=== PATIENT | female | born 1990 | race African-American/Black ===

== ENCOUNTER 2017-04-10 06:25 | Emergency (ER) | payer BC, MEDICAID ==
[2017-04-10] MEDS ORDERED: PROMETHAZINE HCL 25 MG TABLET PO ONE (06:44)
[2017-04-10] MEDS ORDERED: NORMAL SALINE 1000 ML 1,000 ML IV ONE (06:45)
[2017-04-10 07:33] LABS: ABSOLUTE BASOPHILS # (AUTO) 0.1 10^3/uL (0.0-0.2); ABSOLUTE LYMPHOCYTES (AUTO) 1.9 10^3/uL (0.5-4.7); ABSOLUTE MONOCYTES (AUTO) 0.4 10^3/uL (0.1-1.4); ABSOLUTE NEUT (AUTO) 4.3 10^3/uL (1.7-8.2); BASOPHILS % (AUTO) 0.9 % (0-2); EOSINOPHILS % (AUTO) 0.5 % (0-6); HEMOGLOBIN 13.5 g/dL (12.0-15.5); HGB HCT DIFFERENCE -0.5; MEAN CORPUSCULAR HEMOGLOBIN 28.7 pg (27.0-33.4); MEAN CORPUSCULAR VOLUME 87 fl (80-97); MONOCYTES % (AUTO) 6.5 % (3-13); RED BLOOD COUNT 4.72 10^6/uL (3.72-5.28); RED CELL DISTRIBUTION WIDTH 13.8 % (11.5-14.0); SEGMENTED NEUTROPHILS % (AUTO) 64.1 % (42-78); WHITE BLOOD COUNT 6.7 10^3/uL (4.0-10.5)
--- NOTE | 2017-04-10 07:53 | ER Document Report ---
ED General - General Chief Complaint: Nausea/Vomiting Stated Complaint: DIZZINESS AND VOMITING Time Seen by Provider: 04/10/17 06:44 Mode of Arrival: Ambulatory Information source: Patient Notes: 26-year-old female 1 para 0 who is approximately 2-3 weeks presents with complaint of nausea and vomiting throughout the . Patient notes she has been having these episodes for the past week has not been able to hold food down feels dehydrated. Patient denies any vaginal bleeding or discharge, denies any abdominal pain. Patient attempted to take Dramamine which did not improve her symptoms TRAVEL OUTSIDE OF THE [place] IN LAST 30 DAYS: No - HPI Onset: Last week Onset/Duration: Persistent Quality of pain: No pain Severity: Mild Pain Level: Denies Associated symptoms: Nausea, Vomiting Exacerbated by: Denies Relieved by: Denies Similar symptoms previously: Yes Recently seen / treated by doctor: Yes Past Medical History - Social History Smoking Status: Never Smoker Cigarette use (# per day): No Chew tobacco use (# tins/day): No Smoking Education Provided: No Frequency of alcohol use: None Drug Abuse: None Family History: Reviewed & Not Pertinent Patient has suicidal ideation: No Patient has homicidal ideation: No Renal/ Medical History: Denies: Hx Peritoneal Dialysis Surgical Hx: Negative - Immunizations Hx Diphtheria, Pertussis, Tetanus Vaccination: Yes Review of Systems - Review of Systems Notes: PHYSICAL EXAMINATION: GENERAL: Well-appearing, well-nourished and in no acute distress. HEAD: Atraumatic, normocephalic. EYES: Pupils equal round and reactive to light, extraocular movements intact, conjunctiva are normal. ENT: Nares patent, oropharynx clear without exudates. Moist mucous membranes. NECK: Normal range of motion, supple without lymphadenopathy LUNGS: Breath sounds clear to auscultation bilaterally and equal. No wheezes rales or rhonchi. HEART: Regular rate and rhythm without murmurs ABDOMEN: Soft, nontender, nondistended abdomen. No guarding, no rebound. No masses appreciated. Female : deferred Musculoskeletal: Normal range of motion, no pitting or edema. No cyanosis. NEUROLOGICAL: Cranial nerves grossly intact. Normal speech, normal gait. Normal sensory, motor exams PSYCH: Normal mood, normal affect. SKIN: Warm, Dry, normal turgor, no rashes or lesions noted. Physical Exam - Vital signs Vitals: Temp Pulse Resp BP Pulse Ox 97.7 F 90 20 127/69 H 100 04/10/17 06:28 04/10/17 06:28 04/10/17 06:28 04/10/17 06:28 04/10/17 06:28 Course - Re-evaluation Re-evalutation: 04/10/17 07:44 After performing a Medical Screening Examination, I estimate there is LOW risk for ACUTE APPENDICITIS, BOWEL OBSTRUCTION, ACUTE CHOLECYSTITIS, PERFORATED DIVERTICULITIS, INCARCERATED HERNIA, PANCREATITIS, PELVIC INFLAMMATORY DISEASE, PERFORATED ULCER, ECTOPIC , or TUBO-OVARIAN ABSCESS, thus I consider the discharge disposition reasonable. Also, there is no evidence or peritonitis , sepsis, or toxicity. I have reevaluated this patient multiple times and no significant life threatening changes are noted. The patient and I have discussed the diagnosis and risks, and we agree with discharging home with close follow-up with the understanding that symptoms and presentations can change. We also discussed returning to the Emergency Department immediately if new or worsening symptoms occur. We have discussed the symptoms which are most concerning (e.g., bloody stool, fever, changing or worsening pain, vomiting) that necessitate immediate return. 04/10/17 08:45 ketones noted to be signifcantly elevated on UA. , more fluids ordered 04/10/17 09:10 Patient is hydrating well 04/10/17 09:32 Patient still she is feeling much better and wishes to be discharged, will DC home with nausea control and close follow-up After performing a Medical Screening Examination, I estimate there is LOW risk for ACUTE APPENDICITIS, BOWEL OBSTRUCTION, ACUTE CHOLECYSTITIS, PERFORATED DIVERTICULITIS, INCARCERATED HERNIA, PANCREATITIS, PELVIC INFLAMMATORY DISEASE, PERFORATED ULCER, ECTOPIC , or TUBO-OVARIAN ABSCESS, thus I consider the discharge disposition reasonable. Also, there is no evidence or peritonitis , sepsis, or toxicity. I have reevaluated this patient multiple times and no significant life threatening changes are noted. The patient and I have discussed the diagnosis and risks, and we agree with discharging home with close follow-up with the understanding that symptoms and presentations can change. We also discussed returning to the Emergency Department immediately if new or worsening symptoms occur. We have discussed the symptoms which are most concerning (e.g., bloody stool, fever, changing or worsening pain, vomiting) that necessitate immediate return. - Vital Signs Vital signs: Temp Pulse Resp BP Pulse Ox 97.7 F 90 20 127/69 H 100 04/10/17 06:28 04/10/17 06:28 04/10/17 06:28 04/10/17 06:28 04/10/17 06:28 - Laboratory Result Diagrams: 04/10/17 07:09 04/10/17 08:44 Laboratory results interpreted by me: 04/10/17 04/10/17 07:09 08:44 Serum HCG, Qual POSITIVE H Urine Protein 30 H Urine Ketones 300 H Urine Bilirubin SMALL H Urine Urobilinogen 2.0 H Discharge - Discharge Clinical Impression: Ketonuria, Hyperemesis gravidarum Condition: Stable Disposition: HOME, SELF-CARE Instructions: Vomiting ([facility]) Additional Instructions: Follow up with your physician tomorrow for further care or return to the ED IMMEDIATELY if symptoms worsen or new concerns occur. If you cannot afford to follow up with your primary care physician a list of low cost clinics have been provided at the end of your discharge papers as well. Prescriptions: Promethazine HCl [Phenergan 25 mg Tablet] 25 - 50 mg PO Q4HP PRN #30 tablet PRN Reason: Metoclopramide HCl [Reglan 10 mg Tablet] 1 - 2 tab PO Q6 #25 tablet
[2017-04-10 08:32] LABS: APPEARANCE,URINE HAZY; BILIRUBIN,URINE SMALL (NEGATIVE); GLUCOSE, URINE NEGATIVE (NEGATIVE); KETONES,URINE 300 mg/dL (NEGATIVE); LEUKOCYTE ESTERASE,URINE NEGATIVE (NEGATIVE); NITRITE,URINE NEGATIVE (NEGATIVE); PROTEIN,URINE 30 mg/dL (NEGATIVE); URIC ACID CRYSTALS,URINE MODERATE /HPF
[2017-04-10 08:42] LABS: URINE SPECIFIC GRAVITY 1.033
[2017-04-10] MEDS ORDERED: NORMAL SALINE 1000 ML 1,000 ML IV PRN (08:45)
[2017-04-10 09:15] LABS: ALANINE AMINOTRANSFERASE 28 U/L (9-52); ALBUMIN 4.2 g/dL (3.5-5.0); ALKALINE PHOSPHATASE 61 U/L (38-126); ANION GAP 11 (5-19); ASPARTATE AMINO TRANSFERASE 18 U/L (14-36); BILIRUBIN,DIRECT 0.4 mg/dL (0.0-0.4); BILIRUBIN,TOTAL 0.7 mg/dL (0.2-1.3); BLOOD UREA NITROGEN 11 mg/dL (7-20); CALCIUM 9.4 mg/dL (8.4-10.2); CARBON DIOXIDE 22 mmol/L (22-30); CHLORIDE 106 mmol/L (98-107); GLUCOSE 80 mg/dL (75-110); LIPASE 71.2 U/L (23-300); POTASSIUM 4.1 mmol/L (3.6-5.0); SODIUM 139.3 mmol/L (137-145); TOTAL PROTEIN 7.7 g/dL (6.3-8.2)
[2017-04-10 10:33] VITALS: BP 106/66
== END 2017-04-10 10:31 | disposition home or self-care (01) ==
LOC: ER 06:25
DX: O21.0 Mild hyperemesis gravidarum (principal); O26.899 Other specified pregnancy related conditions, unspecified trimester; R82.4 Acetonuria; Z3A.00 Weeks of gestation of pregnancy not specified
CPT/HCPCS: 99283; 36415; 83690; 84703; 85025; 80053; 81001; J7030

== ENCOUNTER 2017-10-17 12:23 | Emergency (ER) | payer BC, MEDICAID ==
[2017-10-17] MEDS ORDERED: NORMAL SALINE 1000 ML 1,000 ML IV ONE ×2 (13:03→14:12)
[2017-10-17] MEDS ORDERED: METOCLOPRAMIDE HCL INJ/PF 10 MG/2 ML SDV IV ONE (13:03)
--- NOTE | 2017-10-17 13:04 | ER Document Report ---
ED Medical Screen (RME) - General Chief Complaint: Nausea/Vomiting Stated Complaint: NAUSEA,VOMITING,WEAKNESS Time Seen by Provider: 10/17/17 13:02 Notes: pt with nv for one week. some lbp. no vag bleed/dc. 33wks preg TRAVEL OUTSIDE OF THE [place] IN LAST 30 DAYS: No - Related Data Allergies/Adverse Reactions: No Known Allergies Allergy (Unverified 10/17/17 12:36) Past Medical History Renal/ Medical History: Denies: Hx Peritoneal Dialysis - Immunizations Hx Diphtheria, Pertussis, Tetanus Vaccination: Yes Physical Exam - Vital signs Vitals: Temp Pulse Resp BP Pulse Ox 98.4 F 83 16 121/73 100 10/17/17 12:27 10/17/17 12:27 10/17/17 12:27 10/17/17 12:27 10/17/17 12:27 Course - Vital Signs Vital signs: Temp Pulse Resp BP Pulse Ox 98.4 F 83 16 121/73 100 10/17/17 12:27 10/17/17 12:27 10/17/17 12:27 10/17/17 12:27 10/17/17 12:27
[2017-10-17 13:58] LABS: ABSOLUTE LYMPHOCYTES (AUTO) 1.3 10^3/uL (0.5-4.7); ABSOLUTE MONOCYTES (AUTO) 0.4 10^3/uL (0.1-1.4); ABSOLUTE NEUT (AUTO) 4.2 10^3/uL (1.7-8.2); BASOPHILS % (AUTO) 0.3 % (0-2); EOSINOPHILS % (AUTO) 0.5 % (0-6); HEMATOCRIT 36.2 % (36.0-47.0); HGB HCT DIFFERENCE -0.2; LYMPHOCYTES % (AUTO) 21.3 % (13-45); MEAN CORPUSCULAR HEMOGLOBIN 29.5 pg (27.0-33.4); MEAN CORPUSCULAR HGB CONC 33.1 g/dL (32.0-36.0); MEAN CORPUSCULAR VOLUME 89 fl (80-97); MONOCYTES % (AUTO) 7.5 % (3-13); RED BLOOD COUNT 4.07 10^6/uL (3.72-5.28); RED CELL DISTRIBUTION WIDTH 13.9 % (11.5-14.0); SEGMENTED NEUTROPHILS % (AUTO) 70.4 % (42-78); WHITE BLOOD COUNT 5.9 10^3/uL (4.0-10.5)
[2017-10-17 14:12] LABS: ALANINE AMINOTRANSFERASE 26 U/L (9-52); ALBUMIN 4.1 g/dL (3.5-5.0); ALKALINE PHOSPHATASE 132 U/L (38-126); ANION GAP 12 (5-19); ASPARTATE AMINO TRANSFERASE 19 U/L (14-36); BILIRUBIN,DIRECT 0.3 mg/dL (0.0-0.4); BILIRUBIN,TOTAL 0.7 mg/dL (0.2-1.3); BLOOD UREA NITROGEN 9 mg/dL (7-20); CALCIUM 9.4 mg/dL (8.4-10.2); CARBON DIOXIDE 24 mmol/L (22-30); CHLORIDE 104 mmol/L (98-107); CREATININE RESULT 0.75 mg/dL (0.52-1.25); GLUCOSE 60 mg/dL (75-110); POTASSIUM 4.1 mmol/L (3.6-5.0); SODIUM 139.6 mmol/L (137-145); TOTAL PROTEIN 7.2 g/dL (6.3-8.2)
[2017-10-17] MEDS ORDERED: DEXTROSE 5%-LACTATED RINGERS 1,000 ML IV ONE ×3 (14:13→16:10)
--- NOTE | 2017-10-17 14:17 | ER Document Report ---
ED GI/ - General Mode of Arrival: Ambulatory Information source: Patient TRAVEL OUTSIDE OF THE [place] IN LAST 30 DAYS: No - HPI Patient complains to provider of: Vomiting Onset: Last week Context: - 33 weeks Associated symptoms: Other - see notes above <SHAWN CARRASCO - Last Filed: 10/17/17 14:32> <JANN TRIVEDI - Last Filed: 10/17/17 17:06> - General Chief Complaint: Nausea/Vomiting Stated Complaint: NAUSEA,VOMITING,WEAKNESS Time Seen by Provider: 10/17/17 13:02 Notes: 26 year old female (33 weeks) presents to the ED complaining of nausea and vomiting that started last week. Patient reports that her vomiting is similar to when she was having morning sickness during . Patient has been prescribed Zofran with instructions to take as needed. Patient explains that she takes it approximately every other day, but claims that the medication has not been helping. Prior to seeing the patient, the patient was given 1L saline and IV Reglan and reports feeling better than before. (SHAWN CARRASCO) - Related Data Allergies/Adverse Reactions: No Known Allergies Allergy (Unverified 10/17/17 12:36) Past Medical History - General Information source: Patient - Social History Smoking Status: Never Smoker Chew tobacco use (# tins/day): No Frequency of alcohol use: None Drug Abuse: None Family History: Reviewed & Not Pertinent Patient has suicidal ideation: No Patient has homicidal ideation: No Renal/ Medical History: Denies: Hx Peritoneal Dialysis - Immunizations Hx Diphtheria, Pertussis, Tetanus Vaccination: Yes <SHAWN CARRASCO - Last Filed: 10/17/17 14:32> Review of Systems - Review of Systems Constitutional: No symptoms reported EENT: No symptoms reported Cardiovascular: No symptoms reported Respiratory: No symptoms reported Gastrointestinal: See HPI, Nausea, Vomiting Genitourinary: No symptoms reported Female Genitourinary: See HPI, - 33 weeks Musculoskeletal: No symptoms reported Skin: No symptoms reported Hematologic/Lymphatic: No symptoms reported Neurological/Psychological: No symptoms reported -: Yes All other systems reviewed and negative <SHAWN CARRASCO - Last Filed: 10/17/17 14:32> Physical Exam - General General appearance: Appears well, Alert In distress: None - HEENT Head: Normocephalic, Atraumatic Eyes: Normal Extraocular movements intact: Yes Pupils: PERRL - Respiratory Respiratory status: No respiratory distress Breath sounds: Normal - Cardiovascular Rhythm: Regular Heart sounds: Normal auscultation - Abdominal Inspection: Gravid female Bowel sounds: Normal Tenderness: Tender - diffuse - Back Back: Normal - Extremities General upper extremity: Normal inspection, Normal ROM General lower extremity: Normal inspection, Normal ROM - Neurological Neuro grossly intact: Yes - Psychological Associated symptoms: Normal affect, Normal mood - Skin Skin Temperature: Warm Skin Moisture: Dry Skin Color: Normal <SHAWN CARRASCO - Last Filed: 10/17/17 14:32> - Vital signs Vitals: Temp Pulse Resp BP Pulse Ox 98.4 F 83 16 121/73 100 10/17/17 12:27 10/17/17 12:27 10/17/17 12:27 10/17/17 12:27 10/17/17 12:27 Course - Laboratory Result Diagrams: 10/17/17 13:20 10/17/17 13:20 <SHAWN CARRASCO - Last Filed: 10/17/17 14:32> - Laboratory Result Diagrams: 10/17/17 13:20 10/17/17 13:20 <JANN TRIVEDI - Last Filed: 10/17/17 17:06> - Vital Signs Vital signs: Temp Pulse Resp BP Pulse Ox 98.4 F 83 16 121/73 100 10/17/17 12:27 10/17/17 12:27 10/17/17 12:27 10/17/17 12:27 10/17/17 12:27 - Laboratory Laboratory results interpreted by me: 10/17/17 10/17/17 13:20 16:05 Glucose 60 L Alkaline Phosphatase 132 H Urine Protein 30 H Urine Glucose (UA) >=500 H Urine Ketones 80 H Urine Urobilinogen 2.0 H Urine Ascorbic Acid 40 H Discharge <SHAWN CARRASCO - Last Filed: 10/17/17 14:32> <JANN TRIVEDI - Last Filed: 10/17/17 17:06> - Discharge Clinical Impression: Hyperemesis gravidarum, Hypoglycemia, 33 weeks gestation of Condition: Stable Disposition: HOME, SELF-CARE Additional Instructions: Hyperemesis Gravidarum Hyperemesis gravidarum is the medical term for severe vomiting during . We don't know exactly why it occurs, but it's a common problem. Dehydration can occur. This reduces blood flow to the placenta, decreasing the baby's nourishment. The baby will also become dehydrated. There can be harmful changes in blood sodium, potassium, or acid balance. Our goal is to correct, and prevent, dehydration. For severe cases, we give IV fluids. Antinausea medication will be prescribed. (Don't be concerned about " defects" -- the risk to you and your baby from the hyperemesis is the biggest problem. The antinausea medication is very safe at this stage of .) Call the doctor if you have vaginal bleeding, abdominal pain, severe lightheadedness or weakness, or other alarming symptoms. //////////////////////////////////////////////////////////////////////////////// //////////////////////////////////////////////////////// Take medication as prescribed for nausea. Drink cool clear liquids. Follow-up with your [employer] doctor this week if not feeling better. RETURN TO THE EMERGENCY ROOM IF ANY NEW OR WORSENING SYMPTOMS. Prescriptions: Metoclopramide HCl [Reglan 10 mg Tablet] 1 - 2 tab PO ASDIR PRN #30 tablet PRN Reason: Forms: Return to Work Scribe Attestation: 10/17/17 17:05 I personally performed the services described in the documentation, reviewed and edited the documentation which was dictated to the scribe in my presence, and it accurately records my words and actions. (JANN TRIVEDI) Scribe Documentation - Scribe Written by Scribe:: Deneen Newman, 10/17/2017 1421 acting as scribe for :: Simón <SHAWN CARRASCO - Last Filed: 10/17/17 14:32>
[2017-10-17 16:53] LABS: APPEARANCE,URINE SLIGHTLY-CLOUDY; BILIRUBIN,URINE NEGATIVE (NEGATIVE); GLUCOSE, URINE >=500 mg/dL (NEGATIVE); KETONES,URINE 80 mg/dL (NEGATIVE); LEUKOCYTE ESTERASE,URINE NEGATIVE (NEGATIVE); NITRITE,URINE NEGATIVE (NEGATIVE); PROTEIN,URINE 30 mg/dL (NEGATIVE); URINE SPECIFIC GRAVITY 1.032
[2017-10-17 18:33] VITALS: BP 113/72
== END 2017-10-17 18:34 | disposition home or self-care (01) ==
LOC: ER 12:23
DX: O21.0 Mild hyperemesis gravidarum (principal); O99.283 Endocrine, nutritional and metabolic diseases complicating pregnancy, third trimester; E16.2 Hypoglycemia, unspecified; Z3A.33 33 weeks gestation of pregnancy
CPT/HCPCS: 99284; 96361; 96374; 36415; 85025; 80053; 81001; J2765; J7030

== ENCOUNTER 2017-11-20 20:49 | Outpatient (CLI) | payer BC, MEDICAID ==
[2017-11-20 21:49] LABS: ABSOLUTE BASOPHILS # (AUTO) 0.1 10^3/uL (0.0-0.2); ABSOLUTE EOSINOPHILS # (AUTO) 0.1 10^3/uL (0.0-0.6); ABSOLUTE LYMPHOCYTES (AUTO) 2.1 10^3/uL (0.5-4.7); ABSOLUTE MONOCYTES (AUTO) 0.8 10^3/uL (0.1-1.4); ABSOLUTE NEUT (AUTO) 4.6 10^3/uL (1.7-8.2); BASOPHILS % (AUTO) 1.1 % (0-2); EOSINOPHILS % (AUTO) 1.4 % (0-6); HEMATOCRIT 32.6 % (36.0-47.0); HEMOGLOBIN 10.6 g/dL (12.0-15.5); LYMPHOCYTES % (AUTO) 27.6 % (13-45); MEAN CORPUSCULAR HEMOGLOBIN 28.5 pg (27.0-33.4); MEAN CORPUSCULAR HGB CONC 32.6 g/dL (32.0-36.0); MEAN CORPUSCULAR VOLUME 88 fl (80-97); MONOCYTES % (AUTO) 10.1 % (3-13); PLATELET COUNT 309 10^3/uL (150-450); RED BLOOD COUNT 3.72 10^6/uL (3.72-5.28); SEGMENTED NEUTROPHILS % (AUTO) 59.8 % (42-78); TOTAL CELLS COUNTED % (AUTO) 100 %; WHITE BLOOD COUNT 7.6 10^3/uL (4.0-10.5)
--- NOTE | 2017-11-20 22:08 | Non Stress Test Report ---
Non Stress Test Datetime Report Generated by CPN: 11/20/2017 22:07 DEMOGRAPHIC Test Number: 1 EGA NST: 38.5 INDICATION Indication for Study: Ordered by Provider VITAL SIGNS Temperature - NST: 98.5 MONITORING Monitor Explained: Monitor Explained; Test Explained; Patient Verbalized Understanding Time on Monitor: 11/20/2017 21:03 Time off Monitor: 11/20/2017 21:37 NST Duration: 34 NST INTERVENTIONS NST Interventions: PO Hydration Physician Notified NST: Dr. Hickey BABY A: [id number] BABY A Movement : Present Contraction Frequency : no contractions FHR Baseline : 140 Accelerations : 15X15 Decelerations : None Variability : Moderate 6-25bpm NST Review: Meets Criteria for Reactive NST NST Review and Verified By : Lauren Tubbs RN NST Results: Reactive NST REPORT Report Trigger: Send Report
[2017-11-20 22:17] LABS: ALANINE AMINOTRANSFERASE 19 U/L (9-52); ALBUMIN 3.3 g/dL (3.5-5.0); ALKALINE PHOSPHATASE 183 U/L (38-126); ANION GAP 6 (5-19); ASPARTATE AMINO TRANSFERASE 18 U/L (14-36); BILIRUBIN,DIRECT 0.2 mg/dL (0.0-0.4); BILIRUBIN,TOTAL 0.3 mg/dL (0.2-1.3); BLOOD UREA NITROGEN 6 mg/dL (7-20); CALCIUM 9.3 mg/dL (8.4-10.2); CARBON DIOXIDE 27 mmol/L (22-30); CHLORIDE 105 mmol/L (98-107); GLUCOSE 75 mg/dL (75-110); POTASSIUM 4.4 mmol/L (3.6-5.0); SODIUM 137.8 mmol/L (137-145); TOTAL PROTEIN 6.2 g/dL (6.3-8.2)
[2017-11-20 23:00] LABS: RUBELLA INTERPRETATION POSITIVE
[2017-11-22 04:37] LABS: HEPATITIS C VIRUS AB <0.1 s/co ratio (0.0-0.9)
[2017-11-22 07:39] LABS: HEPATITS B SURFACE ANTIGEN Negative (Negative)
== END 2017-11-20 21:45 | disposition home or self-care (01) ==
LOC: LC 20:49
PROVIDERS: ATTEND Obstetrics & Gynecology Gynecology
PROC: 4A1HXCZ Monitoring of Products of Conception, Cardiac Rate, External Approach (ICD-10-PCS; principal; 2017-11-20)
DX: O47.1 False labor at or after 37 completed weeks of gestation (principal); R10.2 Pelvic and perineal pain; Z3A.38 38 weeks gestation of pregnancy
CPT/HCPCS: 36415; 80053; 85025; 86592; 86701; 86762; 86803; 86804; 86850; 86900; 86901; 87340

== ENCOUNTER 2017-11-20 21:56 | Emergency (ER) | payer BC, MEDICAID ==
--- NOTE | 2017-11-20 22:32 | ER Document Report ---
ED General - General Chief Complaint: Abdominal Pain Stated Complaint: LEFT LOW ABDOMINAL PAIN Time Seen by Provider: 11/20/17 22:18 Notes: Patient is a 26-year-old female is 36 weeks who presents with complaint of left-sided pain that was severe. She has history of left ovarian cyst and she was worried that it was complication with this. She denies any fevers. No vomiting or diarrhea. No abnormal vaginal bleeding or discharge. Pain is now gone. She did go to labor and delivery first and they ruled out labor as a cause of her pain. No other complaints at this time. TRAVEL OUTSIDE OF THE [place] IN LAST 30 DAYS: No - Related Data Allergies/Adverse Reactions: No Known Allergies Allergy (Verified 11/20/17 22:19) Past Medical History - Social History Smoking Status: Unknown if Ever Smoked Frequency of alcohol use: None Drug Abuse: None Family History: Reviewed & Not Pertinent Patient has suicidal ideation: No Patient has homicidal ideation: No Renal/ Medical History: Denies: Hx Peritoneal Dialysis - Immunizations Hx Diphtheria, Pertussis, Tetanus Vaccination: Yes Review of Systems - Review of Systems Notes: My Normal Review Basic REVIEW OF SYSTEMS: CONSTITUTIONAL : Denies fever, chills, or sweats. Denies recent illness. RESPIRATORY: Denies cough, cold, or chest congestion. Denies shortness of breath, difficulty breathing, or wheezing. GASTROINTESTINAL: Denies abdominal pain. Denies nausea, vomiting, or diarrhea. Denies constipation. Last BM: GENITOURINARY: Denies difficulty urinating, painful urination, burning, frequency, or blood in urine. FEMALE GENITOURINARY: Currently . No abnormal vaginal discharge or bleeding. History of left ovarian cyst. Left sided pain is now resolved. MUSCULOSKELETAL: Denies neck or back pain or joint pain or swelling. SKIN: Denies rash or skin lesions. NEUROLOGICAL: Denies altered mental status or loss of consciousness. Denies headache. Denies weakness or paralysis or loss of use of either side. Denies problems with gait or speech. Denies sensory or motor loss. ALL OTHER SYSTEMS REVIEWED AND NEGATIVE. Physical Exam - Vital signs Vitals: Temp Pulse Resp BP Pulse Ox 99 F 73 18 111/70 99 11/20/17 22:00 11/20/17 22:00 11/20/17 22:00 11/20/17 22:00 11/20/17 22:00 - Notes Notes: General Appearance: Well nourished, alert, cooperative, no acute distress, no obvious discomfort. Vitals: reviewed, See vital signs table. Eyes: PERRL, EOMI, Conjuctiva clear Abdomen: Normal BS, soft, No rigidity, No reproducible abdominal tenderness to palpation, No guarding, no rebound, Gravid abdomen Extremities: strength 5/5 in all extremities, good pulses in all extremities, no swelling or tenderness in the extremities, no edema. Skin: warm, dry, appropriate color, no rash Neuro: speech clear, oriented x 3, normal affect, responds appropriately to questions. Course - Re-evaluation Re-evalutation: 11/20/17 23:55 Patient will be discharged home. Patient looks well. Her pain has resolved. Ultrasound was negative for torsion. I informed her that she did the right thing to concern for possibility torsion. Informed her she should return to ER immediately if she has recurrence of her pain or feels unwell. Patient agrees with plan. She does have a plan with her telegraph messenger have the cyst removed after delivery of her child. Dictation of this chart was performed using voice recognition software; therefore, there may be some unintended grammatical errors. - Vital Signs Vital signs: Temp Pulse Resp BP Pulse Ox 99 F 73 18 111/70 99 11/20/17 22:00 11/20/17 22:00 11/20/17 22:00 11/20/17 22:00 11/20/17 22:00 - Laboratory Laboratory results interpreted by me: 11/20/17 22:16 Urine Protein 30 H Urine Urobilinogen 2.0 H Ur Leukocyte Esterase SMALL H Discharge - Discharge Clinical Impression: Ovarian cyst Qualifiers: Laterality: left Qualified Code(s): N83.202 - Unspecified ovarian cyst, left side Condition: Good Disposition: HOME, SELF-CARE Additional Instructions: PLease follow up with your OB doctor this week for reevaluation. Please return to [facility] ER imemdiately if you develop worsening recurrent pain, fevers, vomiting , vaginal bleeding, or feel unwell. Referrals: EDI OSORIO MD [Primary Care Provider] - Follow up in 3-5 days
[2017-11-20 22:59] LABS: AMORPHOUS SEDIMENT,URINE TRACE /HPF; APPEARANCE,URINE SLIGHTLY-CLOUDY; BILIRUBIN,URINE NEGATIVE (NEGATIVE); COLOR,URINE YELLOW; GLUCOSE, URINE NEGATIVE (NEGATIVE); KETONES,URINE NEGATIVE (NEGATIVE); LEUKOCYTE ESTERASE,URINE SMALL (NEGATIVE); NITRITE,URINE NEGATIVE (NEGATIVE); PROTEIN,URINE 30 mg/dL (NEGATIVE); URINE SPECIFIC GRAVITY 1.026
--- NOTE | 2017-11-20 23:50 | RADIOLOGY REPORT (SQ) ---
EXAM DESCRIPTION: U/S NON OB PEL LTD W/DOPPLER CLINICAL HISTORY: 26 years, Female, evaluate left ovary for blood flow COMPARISON: None. TECHNIQUE: Targeted for left ovarian lesion only. Gravid uterus. LIMITATIONS: As above. FINDINGS: 9.8 x 8.1 x 6.1 cm left ovary contains a 7.5 x 7.4 x 5.9 cm complex mass with cystic and possible solid components; little or no significant vascularity of the mass is demonstrated. Vascularity is present in the left ovary based on Doppler sonogram. No significant free fluid. IMPRESSION: Indeterminate 7.5 cm left ovarian mass. Limited exam. Gravid uterus not imaged. 2011 [employer]- All Rights Reserved
[2017-11-21 00:05] VITALS: BP 132/73
== END 2017-11-21 00:05 | disposition home or self-care (01) ==
LOC: ER 21:56
DX: O34.83 Maternal care for other abnormalities of pelvic organs, third trimester (principal); N83.202 Unspecified ovarian cyst, left side; Z3A.36 36 weeks gestation of pregnancy
CPT/HCPCS: 76857; 81001; 93976; 99284

== ENCOUNTER 2018-12-06 11:09 | Emergency (ER) | payer BC, MEDICAID ==
[2018-12-06] MEDS ORDERED: ACETAMINOPHEN 325 MG TABLET PO ONE (11:11)
[2018-12-06 11:26] VITALS: BP 117/57
--- NOTE | 2018-12-06 12:11 | ER Document Report ---
HPI - HPI Time Seen by Provider: 12/06/18 11:32 Onset: Yesterday Onset/Duration: Sudden Quality of pain: Achy Pain Level: 4 Context: Patient states she fell yesterday landing on her thumb on pavement. Patient complains of left thumb tenderness with an abrasion. Patient is right-hand dominant. Associated Symptoms: Other - Left thumb injury. denies: Fever Exacerbated by: Movement Relieved by: Denies Similar symptoms previously: No Recently seen / treated by doctor: No - ROS ROS below otherwise negative: Yes Systems Reviewed and Negative: Yes All other systems reviewed and negative - CONSTITUTIONAL Constitutional: DENIES: Fever, Chills - GASTROINTESTINAL Gastrointestinal: DENIES: Nausea - REPRODUCTIVE Reproductive: DENIES: : - MUSCULOSKELETAL Musculoskeletal: REPORTS: Extremity pain - left thumb, Swelling - DERM Skin Color: Normal Skin Problems: Abrasion Past Medical History - General Information source: Patient - Social History Smoking Status: Never Smoker Frequency of alcohol use: None Drug Abuse: None Occupation: Hotel Family History: Reviewed & Not Pertinent Patient has suicidal ideation: No Patient has homicidal ideation: No - Medical History Medical History: Negative Renal/ Medical History: Denies: Hx Peritoneal Dialysis Surgical Hx: Negative - Immunizations Immunizations up to date: Yes Hx Diphtheria, Pertussis, Tetanus Vaccination: Yes Vertical Provider Document - CONSTITUTIONAL Agree With Documented VS: Yes Exam Limitations: No Limitations General Appearance: WD/WN, No Apparent Distress - INFECTION CONTROL TRAVEL OUTSIDE OF THE [place] IN LAST 30 DAYS: No - HEENT HEENT: Atraumatic, Normocephalic - NECK Neck: Normal Inspection - RESPIRATORY Respiratory: No Respiratory Distress - CARDIOVASCULAR Pulses: Normal: Radial - MUSCULOSKELETAL/EXTREMETIES Musculoskeletal/Extremeties: MAEW, Tender - Tenderness to left thumb at that CMC joint, 1+ edema, no deformity, no obvious tendon deficit, Edema. negative: Eccymosis Notes: Abrasion overlying the DIP joint of the left thumb - NEURO Level of Consciousness: Awake, Alert, Appropriate Motor/Sensory: No Motor Deficit - DERM Integumentary: Warm, Dry Notes: Abrasion to dorsal aspect of left thumb Course - Re-evaluation Re-evalutation: 12/06/18 12:37 Abrasion debrided, patient tolerated well - Vital Signs Vital signs: Temp Pulse Resp BP Pulse Ox 98.6 F 59 L 14 117/57 L 100 12/06/18 11:25 12/06/18 11:25 12/06/18 11:25 12/06/18 11:25 12/06/18 11:25 - Diagnostic Test Radiology reviewed: Image reviewed, Reports reviewed Procedures - Immobilization Left Thumb Pre-Proc Neuro Vasc Exam: Normal Immobilizer type: Thumb spica Performed by: PCT Post-Proc Neuro Vasc Exam: Normal Alignment checked and good: Yes Discharge - Discharge Clinical Impression: Left thumb sprain Qualifiers: Encounter type: initial encounter Sprain of finger site: unspecified site Qualified Code(s): S63.602A - Unspecified sprain of left thumb, initial encounter Abrasion of left thumb Qualifiers: Encounter type: initial encounter Qualified Code(s): S60.312A - Abrasion of left thumb, initial encounter Condition: Stable Disposition: HOME, SELF-CARE Instructions: Abrasions ([facility]), Ice & Elevation ([facility]), Sprained Thumb ([facility]), Temporary Splint ([facility]) Additional Instructions: Return immediately for any new or worsening symptoms Followup with your primary care provider, call tomorrow to make a followup appointment Wear splint for the next 4-5 days and then remove. If still having pain follow- up with orthopedics Prescriptions: Naproxen [Naprosyn 250 Nmg Tablet] 1 tab PO BID #14 tablet Forms: Return to Work Referrals: DEI OSORIO MD [ACTIVE STAFF] - Follow up as needed CAROLINA JONES DO [ACTIVE STAFF] - Follow up as needed
--- NOTE | 2018-12-06 12:21 | RADIOLOGY REPORT (SQ) ---
EXAM DESCRIPTION: FINGER LEFT COMPLETED DATE/TIME: 12/06/2018 11:53 am REASON FOR STUDY: fall, L thumb injury COMPARISON: None. NUMBER OF VIEWS: Three views. TECHNIQUE: AP, lateral, and oblique images acquired of the left thumb. LIMITATIONS: None. FINDINGS: MINERALIZATION: Normal. BONES: No acute fracture or dislocation. No worrisome bone lesions. SOFT TISSUES: No soft tissue swelling. No foreign body. OTHER: No other significant finding. IMPRESSION: NO RADIOGRAPHIC EVIDENCE OF ACUTE INJURY. TECHNICAL DOCUMENTATION: JOB ID: [id number] [employer]- All Rights Reserved Reading location - IP/workstation name: [email or web address]
== END 2018-12-06 12:45 | disposition home or self-care (01) ==
LOC: ER 11:09
DX: S63.602A Unspecified sprain of left thumb, initial encounter (principal); S60.312A Abrasion of left thumb, initial encounter; W01.0XXA Fall on same level from slipping, tripping and stumbling without subsequent striking against object, initial encounter
CPT/HCPCS: 99283

== ENCOUNTER 2019-07-31 14:50 | Emergency (ER) | payer SELFPAY ==
[2019-07-31 14:56] VITALS: BP 123/63
--- NOTE | 2019-07-31 15:23 | ER Document Report ---
HPI - HPI Patient complains to provider of: abdominal pain Time Seen by Provider: 07/31/19 15:04 Onset: This morning Onset/Duration: Sudden Quality of pain: No pain Pain Level: Denies Context: This 28-year-old female presents emergency department with complaints of abdominal pain. She reports her 1-year-old daughter kicked her in the left lower quadrant this morning and she had pain for about 2 hours this morning. She reports pain went away and then it came back around noon. Patient reports history of left ovarian cyst and is worried that it was ruptured. Denies vaginal bleeding. Denies other symptoms such as fever vomiting diarrhea. Denies pain with void. Denies vaginal discharge. Patient denies pain at this time. Associated Symptoms: None Exacerbated by: Denies Relieved by: Denies Similar symptoms previously: No Recently seen / treated by doctor: No - REPRODUCTIVE Reproductive: DENIES: : Past Medical History - General Information source: Patient Last Menstrual Period: July 05 - Social History Smoking Status: Never Smoker Chew tobacco use (# tins/day): No Frequency of alcohol use: None Drug Abuse: None Lives with: Family Family History: Reviewed & Not Pertinent Patient has suicidal ideation: No Patient has homicidal ideation: No Renal/ Medical History: Reports: Hx Ovarian Cysts. Denies: Hx Peritoneal Dialysis Surgical Hx: Negative - Immunizations Immunizations up to date: Yes Hx Diphtheria, Pertussis, Tetanus Vaccination: Yes Vertical Provider Document - CONSTITUTIONAL Agree With Documented VS: Yes Exam Limitations: No Limitations General Appearance: WD/WN, No Apparent Distress - INFECTION CONTROL TRAVEL OUTSIDE OF THE [place] IN LAST 30 DAYS: No - HEENT HEENT: Atraumatic, Normocephalic - NECK Neck: Normal Inspection, Supple. negative: Lymphadenopathy-Left, Lymphadenopathy-Right - RESPIRATORY Respiratory: Breath Sounds Normal, No Respiratory Distress - CARDIOVASCULAR Cardiovascular: Regular Rate, Regular Rhythm - GI/ABDOMEN Gastrointestinal: Abdomen Soft, Abdomen Non-Tender - MUSCULOSKELETAL/EXTREMETIES Musculoskeletal/Extremeties: CLAUDE PARKER - NEURO Level of Consciousness: Awake, Alert, Appropriate - DERM Integumentary: Warm, Dry Course - Re-evaluation Re-evalutation: 07/31/19 15:22 28-year-old female presents emergency department with complaints of left lower quad abdominal pain after her 1-year-old daughter kicked her this morning. Denies pain with void. Denies vaginal bleeding. Patient will be evaluated with transvaginal ultrasound in urine. She verbalized understanding to plan of care. Declined pain medication. 07/31/19 19:24 Patient was contacted and informed of her hCG. She was instructed to follow-up with MANAGER DOCUMENTATION tomorrow she verbalized understanding promised she would follow-up. She will Transvaginal US 07/31/19 15:08 IMPRESSION: 1. Complex solid and cystic mass in the left adnexa that is unchanged from 11/20/2017 and is consistent with a mature cystic ovarian teratoma. 2. Hyperechoic lesion in the right ovary that measures 8 x 9 x 7 mm could represent another teratoma. 3. No evidence of ovarian torsion. 4. Fluid within the endometrial canal. - Vital Signs Vital signs: Temp Pulse Resp BP Pulse Ox 98.6 F 70 18 123/63 98 07/31/19 14:55 07/31/19 14:55 07/31/19 14:55 07/31/19 14:55 07/31/19 14:55 - Diagnostic Test Radiology reviewed: Image reviewed, Reports reviewed Discharge - Discharge Clinical Impression: Abdominal pain Qualifiers: Abdominal location: left lower quadrant Qualified Code(s): R10.32 - Left lower quadrant pain Condition: Stable Disposition: HOME, SELF-CARE Instructions: Abdominal Pain ([facility]), [employer] [facility], [facility] [place], ([facility]) Additional Instructions: *You have been evaluated for abdominal pain *The ultrasound did not show a ovarian cystic mass that is unchanged from your ultrasound in November 2017. There is another lesion on your right ovary. You requested to leave without your hCG level. We will call you with that level. If you do not hear from us today you may call [phone] until 11 PM tonight for your results. Return to the emergency department for worsening condition, changes, needs, increasing abdominal pain vaginal bleeding *Return to ED if not better in 24 hours Forms: Return to Work
[2019-07-31 16:17] LABS: APPEARANCE,URINE SLIGHTLY-CLOUDY; BILIRUBIN,URINE NEGATIVE (NEGATIVE); COLOR,URINE YELLOW; GLUCOSE, URINE NEGATIVE (NEGATIVE); KETONES,URINE TRACE mg/dL (NEGATIVE); LEUKOCYTE ESTERASE,URINE MODERATE (NEGATIVE); NITRITE,URINE NEGATIVE (NEGATIVE); PROTEIN,URINE NEGATIVE (NEGATIVE); URINE SPECIFIC GRAVITY 1.023; UROBILINOGEN,URINE NEGATIVE mg/dL (<2.0)
--- NOTE | 2019-07-31 16:51 | RADIOLOGY REPORT (SQ) ---
EXAM DESCRIPTION: U/S NON OB PEL TV W/DOPPLER COMPLETED DATE/TIME: 07/31/2019 4:32 pm REASON FOR STUDY: left ovarian cyst pain coming/going COMPARISON: None. TECHNIQUE: Dynamic and static grayscale images acquired of the pelvis via transvaginal approach and recorded on PACS. Additional selected color Doppler and spectral images recorded. LIMITATIONS: None. FINDINGS: UTERUS: Homogeneous echotexture of the myometrium. ENDOMETRIAL STRIPE: Normal endometrial thickness. There is fluid within the endometrial canal. CERVIX: The cervic measures 2.7 cm and length RIGHT OVARY AND DOPPLER: There is hyperechoic structure within the right ovary that measures 8 x 9 x 7 mm. On Doppler there is intact arterial flow within the ovarian stroma. LEFT OVARY AND DOPPLER: There is a complex solid and cystic mass with a sizable hyperechoic component in the left ovary that measures approximately 11.3 x 9.4 x 6.5 cm.On Doppler there is intact arteria l inflow within the ovarian stroma. FREE FLUID: None. OTHER: No other finding. MEASUREMENTS: UTERUS: 10.1 x 5.5 x 4.9 cm. ENDOMETRIAL STRIPE: 17 mm, however that includes the fluid within the endometrial canal. RIGHT OVARY: 2.9 x 2.7 x 2.6 cm. IMPRESSION: 1. Complex solid and cystic mass in the left adnexa that is unchanged from 11/20/2017 and is consistent with a mature cystic ovarian teratoma. 2. Hyperechoic lesion in the right ovary that measures 8 x 9 x 7 mm could represent another teratoma . 3. No evidence of ovarian torsion. 4. Fluid within the endometrial canal. TECHNICAL DOCUMENTATION: JOB ID: [id number] [employer]- All Rights Reserved Rev-04/06 Reading location - IP/workstation name: [email or web address]
== END 2019-07-31 18:22 | disposition home or self-care (01) ==
LOC: ER 14:50
DX: O26.899 Other specified pregnancy related conditions, unspecified trimester (principal); N83.202 Unspecified ovarian cyst, left side; N83.201 Unspecified ovarian cyst, right side; R10.32 Left lower quadrant pain; Z3A.00 Weeks of gestation of pregnancy not specified
CPT/HCPCS: 36415; 76830; 81001; 81025; 84702; 86850; 86900; 86901; 93976

== ENCOUNTER 2019-08-11 18:55 | Emergency (ER) | payer MEDICAID ==
--- NOTE | 2019-08-11 19:20 | ER Document Report ---
ED Medical Screen (RME) - General Chief Complaint: Nausea/Vomiting Stated Complaint: VOMITING Time Seen by Provider: 08/11/19 19:16 Mode of Arrival: Ambulatory Information source: Patient Notes: This 28-year-old female presents emergency department with complaints of nausea and vomiting. She is approximate 6 weeks . G2, P1. Reports she was sick the entire first . She received Phenergan suppositories and she reports they help with the nausea vomiting but they sleep all the time so she does not like to take them. Last suppository was yesterday. Patient is drinking p.o. fluids and asked for dana penny. Denies abdominal pain. Denies pain with void. Denies vaginal bleeding. I have greeted and performed a rapid initial assessment of this patient. A comprehensive ED assessment and evaluation of the patient, analysis of test results and completion of the medical decision making process will be conducted by additional ED providers. Dictation of this chart was performed using voice recognition software; therefore, there may be some unintended grammatical errors. TRAVEL OUTSIDE OF THE [place] IN LAST 30 DAYS: No - Related Data Allergies/Adverse Reactions: No Known Allergies Allergy (Verified 07/31/19 14:52) Past Medical History - Social History Frequency of alcohol use: None Drug Abuse: None Renal/ Medical History: Reports: Hx Ovarian Cysts. Denies: Hx Peritoneal Dialysis - Immunizations Immunizations up to date: Yes Hx Diphtheria, Pertussis, Tetanus Vaccination: Yes Physical Exam - Vital signs Vitals: Temp Pulse Resp BP Pulse Ox 97.9 F 71 18 119/78 100 08/11/19 19:10 08/11/19 19:10 08/11/19 19:10 08/11/19 19:10 08/11/19 19:10 Course - Vital Signs Vital signs: Temp Pulse Resp BP Pulse Ox 97.9 F 71 18 119/78 100 08/11/19 19:10 08/11/19 19:10 08/11/19 19:10 08/11/19 19:10 08/11/19 19:10
[2019-08-11 19:55] LABS: ABSOLUTE BASOPHILS # (AUTO) 0.1 10^3/uL (0.0-0.2); ABSOLUTE EOSINOPHILS # (AUTO) 0.1 10^3/uL (0.0-0.6); ABSOLUTE LYMPHOCYTES (AUTO) 1.9 10^3/uL (0.5-4.7); ABSOLUTE MONOCYTES (AUTO) 0.4 10^3/uL (0.1-1.4); ABSOLUTE NEUT (AUTO) 4.1 10^3/uL (1.7-8.2); BASOPHILS % (AUTO) 1.2 % (0-2); EOSINOPHILS % (AUTO) 1.2 % (0-6); HEMATOCRIT 40.9 % (36.0-47.0); HEMOGLOBIN 13.8 g/dL (12.0-15.5); LYMPHOCYTES % (AUTO) 28.5 % (13-45); MEAN CORPUSCULAR HEMOGLOBIN 29.4 pg (27.0-33.4); MEAN CORPUSCULAR HGB CONC 33.7 g/dL (32.0-36.0); MEAN CORPUSCULAR VOLUME 87 fl (80-97); MONOCYTES % (AUTO) 6.6 % (3-13); PLATELET COUNT 390 10^3/uL (150-450); RED BLOOD COUNT 4.69 10^6/uL (3.72-5.28); RED CELL DISTRIBUTION WIDTH 12.9 % (11.5-14.0); SEGMENTED NEUTROPHILS % (AUTO) 62.5 % (42-78); TOTAL CELLS COUNTED % (AUTO) 100 %; WHITE BLOOD COUNT 6.6 10^3/uL (4.0-10.5)
[2019-08-11 20:00] LABS: APPEARANCE,URINE CLOUDY; BILIRUBIN,URINE NEGATIVE (NEGATIVE); COLOR,URINE AMBER; GLUCOSE, URINE NEGATIVE (NEGATIVE); KETONES,URINE 80 mg/dL (NEGATIVE); LEUKOCYTE ESTERASE,URINE SMALL (NEGATIVE); NITRITE,URINE NEGATIVE (NEGATIVE); PROTEIN,URINE 100 mg/dL (NEGATIVE); URINE SPECIFIC GRAVITY 1.038
[2019-08-11 20:18] LABS: ALBUMIN 4.9 g/dL (3.5-5.0); ALKALINE PHOSPHATASE 68 U/L (38-126); ANION GAP 14 (5-19); ASPARTATE AMINO TRANSFERASE 20 U/L (14-36); BILIRUBIN,DIRECT 0.2 mg/dL (0.0-0.4); BILIRUBIN,TOTAL 0.7 mg/dL (0.2-1.3); BLOOD UREA NITROGEN 12 mg/dL (7-20); CALCIUM 10.2 mg/dL (8.4-10.2); CARBON DIOXIDE 24 mmol/L (22-30); CHLORIDE 101 mmol/L (98-107); GLUCOSE 91 mg/dL (75-110); POTASSIUM 4.2 mmol/L (3.6-5.0); TOTAL PROTEIN 8.7 g/dL (6.3-8.2)
[2019-08-11] MEDS ORDERED: NORMAL SALINE 1000 ML 1,000 ML IV ONE (20:49)
--- NOTE | 2019-08-11 20:54 | ER Document Report ---
ED General - General Chief Complaint: Nausea/Vomiting Stated Complaint: VOMITING Time Seen by Provider: 08/11/19 19:16 Mode of Arrival: Ambulatory Notes: RME NOTE: This 28-year-old female presents emergency department with complaints of nausea and vomiting. She is approximate 6 weeks . G2, P1. Reports she was sick the entire first . She received Phenergan suppositories and she reports they help with the nausea vomiting but they sleep all the time so she does not like to take them. Last suppository was yesterday. Patient is drinking p.o. fluids and asked for dana penny. Denies abdominal pain. Denies pain with void. Denies vaginal bleeding. MY HPI: Patient did present to this facility on July 31 for generalized abdominal pain. At that time she found out she was . States since then she [facility] who was the one that prescribed her the Phenergan hanson ppositories. According to nurses note and RME note patient was drinking fluids and had no episodes of vomiting in the emergency department. Upon my assessment patient voices she feels "very dehydrated." Patient's denying any dysuria, vaginal discharge to include bleeding, abdominal pain. TRAVEL OUTSIDE OF THE [place] IN LAST 30 DAYS: No - Related Data Allergies/Adverse Reactions: No Known Allergies Allergy (Verified 08/11/19 20:31) Past Medical History - General Information source: Patient - Social History Smoking Status: Never Smoker Frequency of alcohol use: None Drug Abuse: None Family History: Reviewed & Not Pertinent Patient has suicidal ideation: No Patient has homicidal ideation: No Renal/ Medical History: Reports: Hx Ovarian Cysts. Denies: Hx Peritoneal Dialysis - Immunizations Immunizations up to date: Yes Hx Diphtheria, Pertussis, Tetanus Vaccination: Yes Review of Systems - Review of Systems Constitutional: denies: Fever EENT: No symptoms reported Cardiovascular: No symptoms reported Respiratory: No symptoms reported Gastrointestinal: See HPI Genitourinary: No symptoms reported Female Genitourinary: See HPI Musculoskeletal: No symptoms reported Skin: No symptoms reported Hematologic/Lymphatic: No symptoms reported Neurological/Psychological: No symptoms reported Physical Exam - Vital signs Vitals: Temp Pulse Resp BP Pulse Ox 97.9 F 71 18 119/78 100 08/11/19 19:10 08/11/19 19:10 08/11/19 19:10 08/11/19 19:10 08/11/19 19:10 - Notes Notes: GENERAL: Alert, interacts well. No acute distress. HEAD: Normocephalic, atraumatic. EYES: Pupils equal, round, and reactive to light. Extraocular movements intact. ENT: Oral mucosa moist, tongue midline. NECK: Full range of motion. Supple. Trachea midline. LUNGS: Clear to auscultation bilaterally, no wheezes, rales, or rhonchi. No respiratory distress. HEART: Regular rate and rhythm. No murmur ABDOMEN: Soft, non-tender. Non-distended. Bowel sounds present in all 4 quadrants. EXTREMITIES: Moves all 4 extremities spontaneously. No edema, normal radial and dorsalis pedis pulses bilaterally. No cyanosis. BACK: no cervical, thoracic, lumbar midline tenderness. No saddle anesthesia, normal distal neurovascular exam. NEUROLOGICAL: Alert and oriented x3. Normal speech. cranial nerves II through XII grossly intact PSYCH: Normal affect, normal mood. SKIN: Warm, dry, normal turgor. No rashes or lesions noted. Course - Re-evaluation Re-evalutation: 08/11/19 20:51 Laboratory 08/11/19 08/11/19 08/11/19 19:36 19:36 19:36 WBC 6.6 RBC 4.69 Hgb 13.8 Hct 40.9 MCV 87 MCH 29.4 MCHC 33.7 RDW 12.9 Plt Count 390 Lymph % (Auto) 28.5 [place] % (Auto) 6.6 Eos % (Auto) 1.2 Baso % (Auto) 1.2 Absolute Neuts (auto) 4.1 Absolute Lymphs (auto) 1.9 Absolute Monos (auto) 0.4 Absolute Eos (auto) 0.1 Absolute Basos (auto) 0.1 Seg Neutrophils % 62.5 Sodium 138.5 Potassium 4.2 Chloride 101 Carbon Dioxide 24 Anion Gap 14 BUN 12 Creatinine 0.84 Est GFR ( Amer) > 60 Est GFR (MDRD) Non-Af > 60 Glucose 91 Calcium 10.2 Total Bilirubin 0.7 Direct Bilirubin 0.2 Neonat Total Bilirubin Not Reportable Neonat Direct Bilirubin Not Reportable Neonat Indirect Bili Not Reportable AST 20 ALT 15 Alkaline Phosphatase 68 Total Protein 8.7 H Albumin 4.9 Urine Color TONO Urine Appearance CLOUDY Urine pH 5.0 Ur Specific Butler 1.038 Urine Protein 100 H Urine Glucose (UA) NEGATIVE Urine Ketones 80 H Urine Blood NEGATIVE Urine Nitrite NEGATIVE Urine Bilirubin NEGATIVE Urine Urobilinogen 4.0 H Ur Leukocyte Esterase SMALL H Urine WBC (Auto) 12 Urine RBC (Auto) 6 Squamous Epi Cells Auto 24 Urine Mucus (Auto) MANY Urine Ascorbic Acid NEGATIVE Patient's urine does show an elevated specific gravity at 1.038. I have discussed with patient if she is able to drink fluids or if she would like an IV for fluid resuscitation. Patient voices she would like an IV. Otherwise labs unremarkable. I have discussed with her [id number] Unisom and vitamin B6. I discussed [facility] at [facility]. Patient is non-tachycardic, nontoxic, stable for discharge. At this time will discharge with return precautions and follow-up recommendations. Verbal discharge instructions given a the bedside and opportu nity for questions given. Medication warnings reviewed. Patient is in agreement with this plan and has verbalized understanding of return precautions and the need for primary care follow-up in the next 24-72 hours. This medical record was dictated with voice recognizing software. There may be grammatical, syntax errors that are unintended. - Vital Signs Vital signs: Temp Pulse Resp BP Pulse Ox 97.9 F 71 18 119/78 100 08/11/19 19:10 08/11/19 19:10 08/11/19 19:10 08/11/19 19:10 08/11/19 19:10 - Laboratory Result Diagrams: 08/11/19 19:36 08/11/19 19:36 Laboratory results interpreted by me: 08/11/19 08/11/19 19:36 19:36 Total Protein 8.7 H Urine Protein 100 H Urine Ketones 80 H Urine Urobilinogen 4.0 H Ur Leukocyte Esterase SMALL H Discharge - Discharge Clinical Impression: Nausea/vomiting in , Dehydration Condition: Stable Disposition: HOME, SELF-CARE Instructions: Vomiting ([facility]), Intravenous (IV) Fluids ([facility]), ([facility]) Additional Instructions: As we discussed you have been seen and treated in the emergency department for nausea and vomiting during . Please make sure you continue use medications as prescribed. You can also try [id number] Unisom. You should take 12.5 mg at bedtime daily as needed for nausea. You can also take vitamin B6, this is 25 mg every 8 hours as needed for nausea. Please make sure you continue to follow-up with [facility] and return to the emergency room for any concerns. Referrals: [facility] [Provider Group] - Follow up as needed
[2019-08-11 22:15] VITALS: BP 123/76
== END 2019-08-11 22:13 | disposition home or self-care (01) ==
LOC: ER 18:55
DX: O21.9 Vomiting of pregnancy, unspecified (principal); O99.280 Endocrine, nutritional and metabolic diseases complicating pregnancy, unspecified trimester; E86.0 Dehydration; Z3A.00 Weeks of gestation of pregnancy not specified
CPT/HCPCS: 99284; 96360; 36415; 87086; 85025; 87088; 80053; 81001; J7030

== ENCOUNTER 2019-08-21 20:36 | Emergency (ER) | payer MEDICAID ==
--- NOTE | 2019-08-21 23:26 | ER Document Report ---
ED Extremity Problem, Lower - General Chief Complaint: Leg Pain Stated Complaint: LEG PAIN Time Seen by Provider: 08/21/19 23:26 Primary Care Provider: DALTON SIMPSON MD [Primary Care Provider] - Follow up as needed Mode of Arrival: Ambulatory Information source: Patient Notes: HISTORY OF PRESENT ILLNESS: Patient is a 28-year-old female at 8 weeks with no significant past medical history who presents with several days of nausea and vomiting with leg cramps. Patient reports that she has been nauseated for most of her which is identical to her first , reports having cramping of both of her legs for several days. Mechanism of injury: None Location: Bilateral legs Onset: Several days ago Provocation: Walking, vomiting Quality: Aching, cramping Radiation: None Severity: Mild Timing: Constant Numbness/Tingling: None REVIEW OF SYSTEMS: CONSTITUTIONAL : Denies fever or chills, no sweats. Denies recent illness. EENT: Denies eye, ear, throat, or mouth pain or symptoms. Denies nasal or sinus congestion. CARDIOVASCULAR: Denies chest pain. RESPIRATORY: Denies cough, cold, or chest congestion. Denies shortness of breath, difficulty breathing, or wheezing. GASTROINTESTINAL: Denies abdominal pain. Positive for nausea and vomiting. Denies constipation. GENITOURINARY: Denies difficulty urinating, painful urination, burning, frequency, or blood in urine. FEMALE GENITOURINARY: Denies vaginal bleeding, abnormal or irregular periods. Last menstrual period MUSCULOSKELETAL: Positive for leg cramps. SKIN: Denies rash or skin lesions. HEMATOLOGIC : Denies easy bruising or bleeding. LYMPHATIC: Denies swollen, enlarged glands. NEUROLOGICAL: Denies weakness or paralysis or loss of use of either side. Denies problems with gait or speech. Denies sensory or motor loss. PSYCHIATRIC: Denies anxiety or stress or depression. All other systems reviewed and negative. PHYSICAL EXAMINATION: GENERAL: Well-appearing, well-nourished and in no acute distress. HEAD: Atraumatic, normocephalic. No scalp deformity, depression, or crepitance. EYES: Pupils are 3 mm and equal/round/reactive to light, extraocular movements intact, sclera anicteric, conjunctiva are normal. ENT: Nares patent bilaterally, oropharynx clear without exudates or palatal petechia. Moist mucous membranes. No tonsil hypertrophy. NECK: Normal range of motion, supple without lymphadenopathy. LUNGS: Breath sounds present, equal, and clear to auscultation bilaterally. No wheezes, rales, or rhonchi. HEART: Regular rate and rhythm without murmurs, rubs, or gallops. 2+ peripheral pulses. Normal capillary refill. ABDOMEN: Soft, nontender, nondistended. Normoactive bowel sounds. No guarding, no rebound. No masses appreciated. BACK: Normal contour, no midline tenderness. Rectal exam deferred. GENITAL/PELVC: Deferred. EXTREMITIES: Normal range of motion, no obvious deformity. No pitting or edema. No cyanosis and normal capillary refill <2 seconds. NEUROLOGICAL: No focal neurological deficits. Moves all extremities spontaneously and on command. PSYCH: Normal mood, normal affect. No suicidal thoughts/ideations. No homicidal thoughts/ideations. No hallucinations. SKIN: Warm, dry, normal turgor, no rashes or lesions noted. ASSESSMENT AND PLAN: This patient is a 28-year-old female who presents with nausea vomiting with leg cramps for several days. 1. Will obtain labs, urine, drug screen, electrolytes, quantitative beta hCG, and reassess. 2. Will give IV fluids with Reglan. TRAVEL OUTSIDE OF THE [place] IN LAST 30 DAYS: No - HPI Patient complains to provider of: Pain Location: Leg Occurred: Last week Where: Home Onset/Duration: Gradual Quality of pain: Achy, Cramping Severity: Mild Pain Level: Denies Recent injury: No Exacerbated by: Movement, Walking Relieved by: Elevation, Rest - Related Data Allergies/Adverse Reactions: No Known Allergies Allergy (Verified 08/11/19 20:31) Past Medical History - General Information source: Patient - Social History Smoking Status: Never Smoker Chew tobacco use (# tins/day): No Frequency of alcohol use: None Drug Abuse: Marijuana Lives with: Family Family History: Reviewed & Not Pertinent Patient has suicidal ideation: No Patient has homicidal ideation: No - Medical History Medical History: Negative - Past Medical History Cardiac Medical History: Reports: None Pulmonary Medical History: Reports: None EENT Medical History: Reports: None Neurological Medical History: Reports: None Endocrine Medical History: Reports: None Renal/ Medical History: Reports: Hx Ovarian Cysts. Denies: Hx Peritoneal Dialysis Malignancy Medical History: Reports: None GI Medical History: Reports: None Musculoskeletal Medical History: Reports None Skin Medical History: Reports None Psychiatric Medical History: Reports: None Traumatic Medical History: Reports: None Infectious Medical History: Reports: None Surgical Hx: Negative Past Surgical History: Reports: None - Immunizations Immunizations up to date: Yes Hx Diphtheria, Pertussis, Tetanus Vaccination: Yes Review of Systems - Review of Systems Constitutional: No symptoms reported EENT: No symptoms reported Cardiovascular: No symptoms reported Respiratory: No symptoms reported Gastrointestinal: No symptoms reported Genitourinary: No symptoms reported Female Genitourinary: No symptoms reported Musculoskeletal: See HPI, Muscle pain Skin: No symptoms reported Hematologic/Lymphatic: No symptoms reported Neurological/Psychological: No symptoms reported -: Yes All other systems reviewed and negative Physical Exam - Vital signs Vitals: Temp Pulse Resp BP Pulse Ox 98.5 F 93 20 123/77 100 08/21/19 20:48 08/21/19 20:48 08/21/19 20:48 08/21/19 20:48 08/21/19 20:48 Interpretation: Normal Course - Re-evaluation Re-evalutation: 08/22/19 02:13 Blood work is unremarkable, patient has a urine drug screen positive for marijuana. Will discharge the patient home with strict return precautions and follow-up with MANAGER HOUSEKEEPING. All results were explained to and discussed with the patient, and all questions addressed and answered. The patient voices both understanding and agreeing with the plan. - Vital Signs Vital signs: Temp Pulse Resp BP Pulse Ox 98.5 F 88 18 121/78 100 08/22/19 02:41 08/22/19 02:41 08/22/19 02:41 08/22/19 02:41 08/22/19 02:41 - Laboratory Result Diagrams: 08/21/19 00:12 08/21/19 00:12 Laboratory results interpreted by me: 08/21/19 08/22/19 00:12 00:20 Sodium 135.0 L Chloride 97 L Total Protein 8.3 H Beta HCG, Quant 042720.00 H Urine Protein 30 H Urine Ketones 20 H Urine Urobilinogen 4.0 H Ur Leukocyte Esterase TRACE H Urine Ascorbic Acid 40 H Discharge - Discharge Clinical Impression: Vomiting during Condition: Good Disposition: HOME, SELF-CARE Instructions: Vomiting ([facility]) Additional Instructions: You have been evaluated in the Emergency Department for leg cramping and vomitin g. While here, you had blood work that was normal and were given IV fluids and it is now safe to be discharged home. Please follow-up with your MANAGER HOUSEKEEPING as instructed in one week to be rechecked. Return to the Emergency Department if you experience vaginal bleeding, vaginal discharge, uncontrollable vomiting, weakness, or any other concerning symptoms. Prescriptions: Metoclopramide HCl [Reglan 10 mg Tablet] 10 mg PO Q8HP PRN #30 tablet PRN Reason: For Nausea/Vomiting Forms: Return to Work Referrals: DALTON SIMPSON MD [Primary Care Provider] - Follow up as needed Print Language: Sinhala
[2019-08-21] MEDS ORDERED: NORMAL SALINE 1000 ML 1,000 ML IV ONE (23:59)
[2019-08-22] MEDS ORDERED: METOCLOPRAMIDE HCL INJ/PF 10 MG/2 ML SDV IV ONE
[2019-08-22 00:32] LABS: ABSOLUTE EOSINOPHILS # (AUTO) 0.1 10^3/uL (0.0-0.6); ABSOLUTE LYMPHOCYTES (AUTO) 1.3 10^3/uL (0.5-4.7); ABSOLUTE MONOCYTES (AUTO) 0.7 10^3/uL (0.1-1.4); ABSOLUTE NEUT (AUTO) 4.3 10^3/uL (1.7-8.2); BASOPHILS % (AUTO) 0.6 % (0-2); HEMATOCRIT 41.1 % (36.0-47.0); HEMOGLOBIN 13.9 g/dL (12.0-15.5); LYMPHOCYTES % (AUTO) 20.2 % (13-45); MEAN CORPUSCULAR HEMOGLOBIN 29.5 pg (27.0-33.4); MEAN CORPUSCULAR HGB CONC 33.7 g/dL (32.0-36.0); MEAN CORPUSCULAR VOLUME 87 fl (80-97); MONOCYTES % (AUTO) 11.4 % (3-13); PLATELET COUNT 305 10^3/uL (150-450); RED CELL DISTRIBUTION WIDTH 12.5 % (11.5-14.0); SEGMENTED NEUTROPHILS % (AUTO) 66.8 % (42-78); TOTAL CELLS COUNTED % (AUTO) 100 %; WHITE BLOOD COUNT 6.4 10^3/uL (4.0-10.5)
[2019-08-22 00:41] LABS: APPEARANCE,URINE SLIGHTLY-CLOUDY; BILIRUBIN,URINE NEGATIVE (NEGATIVE); COLOR,URINE AMBER; GLUCOSE, URINE NEGATIVE (NEGATIVE); KETONES,URINE 20 mg/dL (NEGATIVE); LEUKOCYTE ESTERASE,URINE TRACE (NEGATIVE); NITRITE,URINE NEGATIVE (NEGATIVE); PROTEIN,URINE 30 mg/dL (NEGATIVE)
[2019-08-22 00:46] LABS: ALBUMIN 4.5 g/dL (3.5-5.0); ALKALINE PHOSPHATASE 67 U/L (38-126); ANION GAP 11 (5-19); ASPARTATE AMINO TRANSFERASE 22 U/L (14-36); BILIRUBIN,DIRECT 0.1 mg/dL (0.0-0.4); BILIRUBIN,TOTAL 0.4 mg/dL (0.2-1.3); BLOOD UREA NITROGEN 9 mg/dL (7-20); CALCIUM 9.7 mg/dL (8.4-10.2); CARBON DIOXIDE 27 mmol/L (22-30); CHLORIDE 97 mmol/L (98-107); GLUCOSE 90 mg/dL (75-110); POTASSIUM 4.2 mmol/L (3.6-5.0); TOTAL PROTEIN 8.3 g/dL (6.3-8.2)
[2019-08-22 00:52] LABS: URINE AMPHETAMINES SCREEN NEGATIVE; URINE BARBITURATES SCREEN NEGATIVE; URINE BENZODIAZEPINES SCREEN NEGATIVE; URINE COCAINE SCREEN NEGATIVE; URINE MARIJUANA (THC) SCREEN UNCONFIRMED POSITIVE; URINE METHADONE SCREEN NEGATIVE; URINE PHENCYCLIDINE SCREEN NEGATIVE
[2019-08-22 02:41] VITALS: BP 121/78
== END 2019-08-22 02:41 | disposition home or self-care (01) ==
LOC: ER 20:36
DX: O21.9 Vomiting of pregnancy, unspecified (principal); O26.891 Other specified pregnancy related conditions, first trimester; R25.2 Cramp and spasm; O99.321 Drug use complicating pregnancy, first trimester; F12.10 Cannabis abuse, uncomplicated; Z3A.08 8 weeks gestation of pregnancy
CPT/HCPCS: 36415; 84702; 85025; 80053; 81001; 80307; J2765; J7030

== ENCOUNTER 2019-09-05 10:49 | Emergency (ER) | payer MEDICAID ==
--- NOTE | 2019-09-05 11:40 | ER Document Report ---
ED Medical Screen (RME) - General Chief Complaint: Leg Swelling Stated Complaint: LEG SWELLING Time Seen by Provider: 09/05/19 11:36 Primary Care Provider: DALTON SIMPSON MD [Primary Care Provider] - Follow up as needed Mode of Arrival: Ambulatory Information source: Patient Notes: 28-year-old female presents to ED for complaint of swelling to both legs. She states it started in her ankles yesterday and then progressed up to her legs. She states yesterday was her first day back to work. She states now that the swelling is there are her legs are painful. He states there has been increase in her salt intake while she was off. He states while at home she was resting with her feet up. She states that she was but had a recently on August 30. She states she was sick as a dog vomiting before she had her . Her last menstrual period was July 01. I have greeted and performed a rapid initial assessment of this patient. A comprehensive ED assessment and evaluation of the patient, analysis of test results and completion of medical decision making process will be conducted by an additional ED providers. TRAVEL OUTSIDE OF THE [place] IN LAST 30 DAYS: No - Related Data Allergies/Adverse Reactions: No Known Allergies Allergy (Verified 08/11/19 20:31) Past Medical History - Social History Frequency of alcohol use: None Drug Abuse: Marijuana Renal/ Medical History: Reports: Hx Ovarian Cysts. Denies: Hx Peritoneal Dialysis Past Surgical History: Reports: Hx Gynecologic Surgery - - Immunizations Immunizations up to date: Yes Hx Diphtheria, Pertussis, Tetanus Vaccination: Yes Physical Exam - Vital signs Vitals: Temp Pulse Resp BP Pulse Ox 99.2 F 82 18 158/86 H 100 09/05/19 10:55 09/05/19 10:55 09/05/19 10:55 09/05/19 10:55 09/05/19 10:55 Course - Vital Signs Vital signs: Temp Pulse Resp BP Pulse Ox 99.2 F 82 18 158/86 H 100 09/05/19 10:55 09/05/19 10:55 09/05/19 10:55 09/05/19 10:55 09/05/19 10:55 Doctor's Discharge - Discharge Referrals: DALTON SIMPSON MD [Primary Care Provider] - Follow up as needed
[2019-09-05 12:14] LABS: ABSOLUTE EOSINOPHILS # (AUTO) 0.2 10^3/uL (0.0-0.6); ABSOLUTE LYMPHOCYTES (AUTO) 1.9 10^3/uL (0.5-4.7); ABSOLUTE MONOCYTES (AUTO) 0.5 10^3/uL (0.1-1.4); ABSOLUTE NEUT (AUTO) 5.1 10^3/uL (1.7-8.2); BASOPHILS % (AUTO) 0.5 % (0-2); EOSINOPHILS % (AUTO) 2.4 % (0-6); HEMATOCRIT 26.4 % (36.0-47.0); HEMOGLOBIN 8.8 g/dL (12.0-15.5); LYMPHOCYTES % (AUTO) 24.7 % (13-45); MEAN CORPUSCULAR HEMOGLOBIN 29.4 pg (27.0-33.4); MEAN CORPUSCULAR HGB CONC 33.2 g/dL (32.0-36.0); MEAN CORPUSCULAR VOLUME 89 fl (80-97); MONOCYTES % (AUTO) 6.8 % (3-13); PLATELET COUNT 314 10^3/uL (150-450); RED BLOOD COUNT 2.99 10^6/uL (3.72-5.28); RED CELL DISTRIBUTION WIDTH 13.1 % (11.5-14.0); SEGMENTED NEUTROPHILS % (AUTO) 65.6 % (42-78); TOTAL CELLS COUNTED % (AUTO) 100 %; WHITE BLOOD COUNT 7.8 10^3/uL (4.0-10.5)
[2019-09-05 12:23] LABS: ALKALINE PHOSPHATASE 78 U/L (38-126); ANION GAP 7 (5-19); ASPARTATE AMINO TRANSFERASE 25 U/L (14-36); BILIRUBIN,DIRECT 0.1 mg/dL (0.0-0.4); BILIRUBIN,TOTAL 0.1 mg/dL (0.2-1.3); BLOOD UREA NITROGEN 6 mg/dL (7-20); CALCIUM 8.3 mg/dL (8.4-10.2); CARBON DIOXIDE 25 mmol/L (22-30); CHLORIDE 108 mmol/L (98-107); GLUCOSE 78 mg/dL (75-110); POTASSIUM 3.4 mmol/L (3.6-5.0); TOTAL PROTEIN 5.8 g/dL (6.3-8.2)
[2019-09-05 12:48] LABS: APPEARANCE,URINE SLIGHTLY-CLOUDY; BILIRUBIN,URINE NEGATIVE (NEGATIVE); COLOR,URINE YELLOW; GLUCOSE, URINE NEGATIVE (NEGATIVE); KETONES,URINE NEGATIVE (NEGATIVE); LEUKOCYTE ESTERASE,URINE LARGE (NEGATIVE); NITRITE,URINE NEGATIVE (NEGATIVE); PROTEIN,URINE NEGATIVE (NEGATIVE); URINE SPECIFIC GRAVITY 1.019; UROBILINOGEN,URINE NEGATIVE mg/dL (<2.0)
--- NOTE | 2019-09-05 14:05 | RADIOLOGY REPORT (SQ) ---
EXAM DESCRIPTION: VENOUS BILATERAL LOWER COMPLETED DATE/TIME: 09/05/2019 1:53 pm REASON FOR STUDY: swelling/pain COMPARISON: None. TECHNIQUE: Dynamic and static weeks scale and color images acquired of both lower extremity venous sy stems. Selected spectral images acquired with additional compression and augmentation maneuvers. Imag es stored on PACS. LIMITATIONS: None. FINDINGS: RIGHT LEG COMMON FEMORAL AND FEMORAL: Normal phasicity, compression and augmentation. No visualized echogenic m aterial on weeks scale. No defects on color images. POPLITEAL: Normal compression and augmentation. No visualized echogenic material on weeks scale. No de fects on color images. CALF VESSELS: Normal compression and augmentation. No visualized echogenic material on weeks scale. No defects on color image. GSV AND SSV: Normal compression. No visualized echogenic material on weeks scale. No defects on color images. ANY DEEP VENOUS INSUFFICIENCY: Not evaluated. ANY EVIDENCE OF POPLITEAL CYST: No. OTHER: No other significant finding. LEFT LEG COMMON FEMORAL AND FEMORAL: Normal phasicity, compression and augmentation. No visualized echogenic m aterial on weeks scale. No defects on color images. POPLITEAL: Normal compression and augmentation. No visualized echogenic material on weeks scale. No de fects on color images. CALF VESSELS: Normal compression and augmentation. No visualized echogenic material on weeks scale. No defects on color images. GSV AND SSV: Normal compression. No visualized echogenic material on weeks scale. No defects on color images. ANY DEEP VENOUS INSUFFICIENCY: Not evaluated. ANY EVIDENCE POPLITEAL CYST: No. OTHER: No other significant finding. IMPRESSION: NO EVIDENCE DVT OR SVT IN EITHER LEG. TECHNICAL DOCUMENTATION: JOB ID: [id number] [employer]- All Rights Reserved Reading location - IP/workstation name: [email or web address]
--- NOTE | 2019-09-05 15:34 | ER Document Report ---
ED Extremity Problem, Lower - General Chief Complaint: Leg Swelling Stated Complaint: LEG SWELLING Time Seen by Provider: 09/05/19 11:36 Primary Care Provider: DALTON SIMPSON MD [Primary Care Provider] - Follow up as needed Mode of Arrival: Ambulatory TRAVEL OUTSIDE OF THE [place] IN LAST 30 DAYS: No - HPI Notes: Patient complains of bilateral lower extremity leg swelling. She feels the right is slightly greater than the left. She states she had an elective approximate 1 week ago. She states she has had a normal vaginal discharge that she would expect. She states she has had some abdominal cramping however. No fevers. This abdominal cramping has been mild. Is been intermittent. Nothing is made it better or worse. Has not radiated. - Related Data Allergies/Adverse Reactions: No Known Allergies Allergy (Verified 08/11/19 20:31) Past Medical History - General Information source: Patient - Social History Smoking Status: Former Smoker Frequency of alcohol use: None Drug Abuse: Marijuana Family History: Reviewed & Not Pertinent Patient has suicidal ideation: No Patient has homicidal ideation: No Renal/ Medical History: Reports: Hx Ovarian Cysts. Denies: Hx Peritoneal Dialysis Past Surgical History: Reports: Hx Gynecologic Surgery - - Immunizations Immunizations up to date: Yes Hx Diphtheria, Pertussis, Tetanus Vaccination: Yes Review of Systems - Review of Systems Constitutional: denies: Chills, Fever Cardiovascular: denies: Chest pain, Palpitations Respiratory: denies: Cough, Hemoptysis, Short of breath Gastrointestinal: Abdominal pain. denies: Diarrhea, Vomiting -: Yes All other systems reviewed and negative Physical Exam - Vital signs Vitals: Temp Pulse Resp BP Pulse Ox 99.2 F 82 18 158/86 H 100 09/05/19 10:55 09/05/19 10:55 09/05/19 10:55 09/05/19 10:55 09/05/19 10:55 Interpretation: Normal - General General appearance: Appears well, Alert - HEENT Head: Normocephalic, Atraumatic Eyes: Normal Pupils: PERRL - Respiratory Respiratory status: No respiratory distress Chest status: Nontender Breath sounds: Normal Chest palpation: Normal - Cardiovascular Rhythm: Regular Heart sounds: Normal auscultation Murmur: No - Abdominal Inspection: Normal Distension: No distension Bowel sounds: Normal Tenderness: Tender - Mild bilateral lower quadrant tenderness to palpation no rebound no guarding. Organomegaly: No organomegaly - Back Back: Normal, Nontender - Extremities General upper extremity: Normal inspection, Nontender, Normal color, Normal ROM, Normal temperature General lower extremity: Normal inspection, Nontender, Normal color, Normal ROM, Normal temperature, Normal weight bearing. No: Mayra's sign - Neurological Neuro grossly intact: Yes Cognition: Normal Orientation: AAOx4 Aurora Coma Scale Eye Opening: Spontaneous Aurora Coma Scale Verbal: Oriented Aurora Coma Scale Motor: Obeys Commands Aurora Coma Scale Total: 15 Speech: Normal Motor strength normal: LUE, RUE, LLE, RLE Sensory: Normal - Psychological Associated symptoms: Normal affect, Normal mood - Skin Skin Temperature: Warm Skin Moisture: Dry Skin Color: Normal Course - Re-evaluation Re-evalutation: 09/05/19 15:33 Patient presents with complaints of bilateral lower extremity swelling. I do not appreciate any pitting edema. DVT studies were negative. Laboratories are consistent with anemia. For this patient will be placed on iron. She has not hypotensive or tachycardic. She does have some lower abdominal cramping with a urinary tract infection. She will be placed on antibiotics for this. Patient currently has an ultrasound of her abdomen pending. I will turn the patient over to Dr. Farmer will follow up on the findings to determine final disposition. 09/05/19 15:35 09/05/19 16:00 - Vital Signs Vital signs: Temp Pulse Resp BP Pulse Ox 99.2 F 82 18 158/86 H 100 09/05/19 10:55 09/05/19 10:55 09/05/19 10:55 09/05/19 10:55 09/05/19 10:55 - Laboratory Result Diagrams: 09/05/19 11:53 09/05/19 11:53 Laboratory results interpreted by me: 09/05/19 09/05/19 09/05/19 11:53 11:53 11:53 RBC 2.99 L Hgb 8.8 L Hct 26.4 L Potassium 3.4 L Chloride 108 H BUN 6 L Calcium 8.3 L Total Bilirubin 0.1 L Total Protein 5.8 L Albumin 3.0 L Beta HCG, Quant 4874.80 H Urine Blood LARGE H Ur Leukocyte Esterase LARGE H - Diagnostic Test Radiology reviewed: Image reviewed, Reports reviewed Discharge - Discharge Clinical Impression: UTI (urinary tract infection) Qualifiers: Urinary tract infection type: acute cystitis Hematuria presence: with hematuria Qualified Code(s): N30.01 - Acute cystitis with hematuria Anemia Qualifiers: Anemia type: iron deficiency Iron deficiency anemia type: unspecified iron deficiency Qualified Code(s): D50.9 - Iron deficiency anemia, unspecified Condition: Stable Disposition: HOME, SELF-CARE Referrals: DALTON SIMPSON MD [Primary Care Provider] - Follow up as needed
--- NOTE | 2019-09-05 16:25 | RADIOLOGY REPORT (SQ) ---
EXAM DESCRIPTION: U/S OB TRANSVAGINAL W/O DOP COMPLETED DATE/TIME: 09/05/2019 4:01 pm REASON FOR STUDY: recent elect / pain rule out retained prod COMPARISON: 07/31/2019. TECHNIQUE: Transvaginal static and realtime grayscale images acquired of the pelvis. Additional italo cted spectral and color Doppler images recorded. All images stored on PACs. CLINICAL AGE: 9 week 3 day. BHCG: Not available. LIMITATIONS: None. FINDINGS: UTERUS: No visualized intrauterine . Heterogenous thickened endometrium in the u terus and cervix. No focal contents in the endometrial canal. RIGHT ADNEXA: Not adequately visualized. No adnexal free fluid. No adnexal masses. LEFT ADNEXA: Not adequately visualized. No adnexal free fluid. No adnexal masses. FREE FLUID: None. OTHER: No other significant finding. IMPRESSION: NO VISUALIZED INTRAUTERINE . THICKENED ENDOMETRIUM WITH NO EVIDENCE OF RETAINED PRODUCTS. THERE IS SUBOPTIMAL VISUALIZATION OF THE OVARIES. THE PREVIOUSLY SEEN LEFT OVARIAN MASS IS NOT ADEQU ATELY VISUALIZED ON THIS STUDY. TECHNICAL DOCUMENTATION: JOB ID: [id number] [employer]- All Rights Reserved Reading location - IP/workstation name: [email or web address]
--- NOTE | 2019-09-05 17:19 | ER Document Report ---
Doctor's Note Notes: 09/05/19 17:13 I have taken over this pt. for Dr. Baugh -- I have spoken to this pt. about the results of her U/S. She understands there arer no POC and has expressed desirer to go home. She will be written for abx for UTI and Iron. Discharge - Discharge Clinical Impression: UTI (urinary tract infection) Qualifiers: Urinary tract infection type: acute cystitis Hematuria presence: with hematuria Qualified Code(s): N30.01 - Acute cystitis with hematuria Anemia Qualifiers: Anemia type: iron deficiency Iron deficiency anemia type: unspecified iron deficiency Qualified Code(s): D50.9 - Iron deficiency anemia, unspecified Condition: Stable Disposition: HOME, SELF-CARE Instructions: Trimethoprim-Sulfa ([facility]), Urinary Tract Infection ([facility]) Additional Instructions: rest, take meds as prescribed, return if worse Prescriptions: Sulfamethoxazole/Trimethoprim [Bactrim Ds Tablet] 1 each PO BID #10 tablet Iron,Carb/Vit C/Vit B12/Folic [Iron 100 Plus Tablet] 1 each PO DAILY #30 tablet Forms: Return to Work Referrals: DALTON SIMPSON MD [Primary Care Provider] - Follow up as needed
[2019-09-05 17:35] VITALS: BP 141/96
== END 2019-09-05 17:35 | disposition home or self-care (01) ==
LOC: ER 10:49
DX: N30.01 Acute cystitis with hematuria (principal); D50.9 Iron deficiency anemia, unspecified; M79.89 Other specified soft tissue disorders; R10.30 Lower abdominal pain, unspecified; R10.813 Right lower quadrant abdominal tenderness; R10.814 Left lower quadrant abdominal tenderness; F12.10 Cannabis abuse, uncomplicated; Z87.891 Personal history of nicotine dependence; Z98.890 Other specified postprocedural states; Z87.42 Personal history of other diseases of the female genital tract
CPT/HCPCS: 36415; 76817; 80053; 81001; 84702; 85025; 93970; 99284

== ENCOUNTER → 2019-10-15 | Outpatient (CLI) | payer OTHER ==
[2019-10-15 12:36] LABS: ABSOLUTE EOSINOPHILS # (AUTO) 0.2 10^3/uL (0.0-0.6); ABSOLUTE LYMPHOCYTES (AUTO) 1.7 10^3/uL (0.5-4.7); ABSOLUTE MONOCYTES (AUTO) 0.3 10^3/uL (0.1-1.4); ABSOLUTE NEUT (AUTO) 1.7 10^3/uL (1.7-8.2); EOSINOPHILS % (AUTO) 4.4 % (0-6); HEMOGLOBIN 11.4 g/dL (12.0-15.5); LYMPHOCYTES % (AUTO) 43.3 % (13-45); MEAN CORPUSCULAR HEMOGLOBIN 29.4 pg (27.0-33.4); MEAN CORPUSCULAR HGB CONC 32.6 g/dL (32.0-36.0); MEAN CORPUSCULAR VOLUME 90 fl (80-97); MONOCYTES % (AUTO) 8.1 % (3-13); PLATELET COUNT 300 10^3/uL (150-450); RED BLOOD COUNT 3.88 10^6/uL (3.72-5.28); RED CELL DISTRIBUTION WIDTH 14.8 % (11.5-14.0); SEGMENTED NEUTROPHILS % (AUTO) 43.2 % (42-78); TOTAL CELLS COUNTED % (AUTO) 100 %; WHITE BLOOD COUNT 3.8 10^3/uL (4.0-10.5)
[2019-10-15 12:54] LABS: ALBUMIN 4.2 g/dL (3.5-5.0); ALKALINE PHOSPHATASE 71 U/L (38-126); ANION GAP 8 (5-19); ASPARTATE AMINO TRANSFERASE 25 U/L (14-36); BILIRUBIN,DIRECT 0.1 mg/dL (0.0-0.4); BILIRUBIN,TOTAL 0.4 mg/dL (0.2-1.3); BLOOD UREA NITROGEN 12 mg/dL (7-20); CALCIUM 9.2 mg/dL (8.4-10.2); CARBON DIOXIDE 27 mmol/L (22-30); CHLORIDE 107 mmol/L (98-107); CHOLESTEROL 170.24 mg/dL (0-200); GLUCOSE 82 mg/dL (75-110); POTASSIUM 4.6 mmol/L (3.6-5.0); TOTAL PROTEIN 7.4 g/dL (6.3-8.2); TRIGLYCERIDES 46 mg/dL (<150)
[2019-10-15 13:04] LABS: DIRECT LDL 84 mg/dL (<100)
== END ==
LOC: OD 11:25
DX: Z00.00 Encounter for general adult medical examination without abnormal findings (principal)
CPT/HCPCS: 36415; 80053; 80061; 83036; 84443; 84702; 85025

== ENCOUNTER 2019-11-22 11:44 | Emergency (ER) | payer MEDICAID, OTHER ==
[2019-11-22 13:02] VITALS: BP 130/67
[2019-11-22] MEDS ORDERED: ACETAMINOPHEN 325 MG TABLET PO ONE (13:11)
[2019-11-22] MEDS ORDERED: IBUPROFEN 600 MG TABLET PO ONE (13:11)
--- NOTE | 2019-11-22 13:14 | ER Document Report ---
HPI - HPI Time Seen by Provider: 11/22/19 13:05 Pain Level: 3 Context: Patient is a 28-year-old female who presents emergency department with a chief complaint of right knee pain, back, and right hip pain. She ended up lipping and falling at [facility]. She was holding her daughter at that time. She came straight here after the fall has not taken any medication for the pain. - CONSTITUTIONAL Constitutional: DENIES: Fever, Chills - NEURO Neurology: DENIES: Headache, Weakness - CARDIOVASCULAR Cardiovascular: DENIES: Chest pain - RESPIRATORY Respiratory: DENIES: Trouble Breathing, Coughing - REPRODUCTIVE Reproductive: DENIES: : - MUSCULOSKELETAL Musculoskeletal: REPORTS: Extremity pain - Right knee/hip - DERM Skin Color: Normal Skin Problems: None Past Medical History - Social History Smoking Status: Never Smoker Chew tobacco use (# tins/day): No Drug Abuse: None Family History: Reviewed & Not Pertinent Patient has suicidal ideation: No Patient has homicidal ideation: No Renal/ Medical History: Reports: Hx Ovarian Cysts. Denies: Hx Peritoneal Dialysis Past Surgical History: Reports: Hx Gynecologic Surgery - - Immunizations Immunizations up to date: Yes Hx Diphtheria, Pertussis, Tetanus Vaccination: Yes Vertical Provider Document - CONSTITUTIONAL Agree With Documented VS: Yes Exam Limitations: No Limitations General Appearance: No Apparent Distress - INFECTION CONTROL TRAVEL OUTSIDE OF THE [place] IN LAST 30 DAYS: No - HEENT HEENT: Atraumatic, Normocephalic, PERRLA - NECK Neck: Normal Inspection - RESPIRATORY Respiratory: No Respiratory Distress - CARDIOVASCULAR Cardiovascular: Regular Rate Pulses: Normal: Radial - MUSCULOSKELETAL/EXTREMETIES Musculoskeletal/Extremeties: FROM, Tender - Right knee and right hip/back - NEURO Level of Consciousness: Awake, Alert, Appropriate - DERM Integumentary: Warm, Dry, No Rash Course - Re-evaluation Re-evalutation: 11/22/19 15:40 I had the patient's discharge paperwork ready, but when I was not able to speak with the patient. I was told by the nurse that the patient ended up leaving again I was not able to discuss results with the patient. I did write her Robaxin to help with pain and muscle spasms. They are stable for discharge. - Vital Signs Vital signs: Temp Pulse Resp BP Pulse Ox 98.5 F 76 16 130/67 H 99 11/22/19 13:01 11/22/19 13:01 11/22/19 13:01 11/22/19 13:01 11/22/19 13:01 Discharge - Discharge Clinical Impression: Fall Qualifiers: Encounter type: initial encounter Qualified Code(s): W19.XXXA - Unspecified fall, initial encounter Knee pain Qualifiers: Chronicity: acute Laterality: right Qualified Code(s): M25.561 - Pain in right knee Back pain Qualifiers: Back pain location: low back pain Chronicity: acute Back pain laterality: right Sciatica presence: without sciatica Qualified Code(s): M54.5 - Low back pain Hip pain Qualifiers: Laterality: right Qualified Code(s): M25.551 - Pain in right hip Disposition: HOME, SELF-CARE Additional Instructions: You were seen today in the emergency department after a fall. Your x-rays are normal. Please continue ibuprofen 600 mg and acetaminophen 1000 mg every 6 hours for your pain. You are also being sent home with Robaxin, which is a muscle relaxer. Please only take this at night, as it can make you sleepy. Please follow-up with the [facility] or your primary care provider if needed. Prescriptions: Methocarbamol [Robaxin 500 mg Tablet] 500 mg PO QHS PRN #10 tablet PRN Reason: Forms: Return to Work Referrals: [facility] [NO LOCAL MD] - Follow up as needed
--- NOTE | 2019-11-22 14:46 | RADIOLOGY REPORT (SQ) ---
EXAM DESCRIPTION: HIP RIGHT AP/LATERAL COMPLETED DATE/TIME: 11/22/2019 2:30 pm REASON FOR STUDY: fall; right knee/hip pain COMPARISON: None. NUMBER OF VIEWS: Two views. TECHNIQUE: AP pelvis and additional frog-leg view of the right hip. LIMITATIONS: None. FINDINGS: MINERALIZATION: Normal. RIGHT HIP: No fracture or dislocation. No worrisome bone lesions. LEFT HIP: No fracture or dislocation. No worrisome bone lesions. PUBIS AND ISCHIUM: No fracture. PELVIS: No fracture. SACRUM: No fracture or dislocation. No worrisome bone lesions. LOWER LUMBAR SPINE: No fracture or dislocation. No worrisome bone lesions. No significant disc disea se. SOFT TISSUES: No findings. OTHER: No other significant finding. IMPRESSION: NEGATIVE STUDY OF THE RIGHT HIP. NO RADIOGRAPHIC EVIDENCE OF ACUTE INJURY. TECHNICAL DOCUMENTATION: JOB ID: [id number] [employer]- All Rights Reserved Reading location - IP/workstation name: [id number]
--- NOTE | 2019-11-22 14:47 | RADIOLOGY REPORT (SQ) ---
EXAM DESCRIPTION: KNEE RIGHT 4 VIEWS COMPLETED DATE/TIME: 11/22/2019 2:30 pm REASON FOR STUDY: fall; right knee/hip pain COMPARISON: None. NUMBER OF VIEWS: Four views. TECHNIQUE: AP, lateral, and both oblique radiographic images acquired of the right knee. LIMITATIONS: None. FINDINGS: MINERALIZATION: Normal. BONES: No acute fracture or dislocation. No worrisome bone lesions. JOINT: No effusion. SOFT TISSUES: No soft tissue swelling. No radio-opaque foreign body. OTHER: No other significant finding. IMPRESSION: NEGATIVE STUDY OF THE RIGHT KNEE. NO RADIOGRAPHIC EVIDENCE OF ACUTE INJURY. TECHNICAL DOCUMENTATION: JOB ID: [id number] [employer]- All Rights Reserved Reading location - IP/workstation name: [id number]
== END 2019-11-22 15:35 | disposition home or self-care (01) ==
LOC: ER 11:44
DX: M25.561 Pain in right knee (principal); M25.551 Pain in right hip; M54.5 Low back pain; W01.0XXA Fall on same level from slipping, tripping and stumbling without subsequent striking against object, initial encounter; Y92.512 Supermarket, store or market as the place of occurrence of the external cause
CPT/HCPCS: 99283; 73502; 73564; J3490 ×2

== ENCOUNTER 2020-06-21 12:46 | Emergency (ER) | payer MEDICAID ==
[2020-06-21] MEDS ORDERED: KETOROLAC TROMETHAMINE 60 MG/2 ML SDV IM ONE ×2 (13:39→16:42)
--- NOTE | 2020-06-21 13:41 | ER Document Report ---
ED Medical Screen (RME) - General Chief Complaint: Chest Wall Pain Stated Complaint: CHEST PAIN Time Seen by Provider: 06/21/20 13:35 Notes: HPI: 29-year-old female who is otherwise healthy presenting for evaluation of right-sided chest discomfort intermittent over the last 3 to 4 days. Seems more prominent when she is bending forward. No shortness of breath with this. No abdominal pain nausea vomiting. No fever or cough. No prior history of similar discomfort denies acute trauma but states that she was sleeping on a couch several days ago and does not know if she may or may not have injured something in the chest wall PHYSICAL EXAMINATION: There is no reproducible pain on palpation of the chest wall with female appointment clerk present. Lung sounds are clear to auscultation regular rate and rhythm. EKG normal sinus rhythm without visible ectopy. Interpreted by emergency department physician. I have greeted and performed a rapid initial assessment of this patient. A comprehensive ED assessment and evaluation of the patient, analysis of test results and completion of medical decision making process will be conducted by an additional ED providers. TRAVEL OUTSIDE OF THE [place] IN LAST 30 DAYS: No - Related Data Allergies/Adverse Reactions: No Known Allergies Allergy (Verified 06/21/20 13:26) Past Medical History - Social History Chew tobacco use (# tins/day): No Frequency of alcohol use: None Drug Abuse: Marijuana Renal/ Medical History: Reports: Hx Ovarian Cysts. Denies: Hx Peritoneal Dialysis Past Surgical History: Reports: Hx Gynecologic Surgery - - Immunizations Immunizations up to date: Yes Hx Diphtheria, Pertussis, Tetanus Vaccination: Yes Physical Exam - Vital signs Vitals: Temp Pulse Resp BP Pulse Ox 98.5 F 72 16 125/75 100 06/21/20 13:06 06/21/20 13:06 06/21/20 13:06 06/21/20 13:06 06/21/20 13:06 Course - Vital Signs Vital signs: Temp Pulse Resp BP Pulse Ox 98.5 F 72 16 125/75 100 06/21/20 13:06 06/21/20 13:06 06/21/20 13:06 06/21/20 13:06 06/21/20 13:06
[2020-06-21 14:23] LABS: ABSOLUTE BASOPHILS # (AUTO) 0.1 10^3/uL (0.0-0.2); ABSOLUTE EOSINOPHILS # (AUTO) 0.3 10^3/uL (0.0-0.6); ABSOLUTE LYMPHOCYTES (AUTO) 2.1 10^3/uL (0.5-4.7); ABSOLUTE MONOCYTES (AUTO) 0.3 10^3/uL (0.1-1.4); ABSOLUTE NEUT (AUTO) 1.7 10^3/uL (1.7-8.2); BASOPHILS % (AUTO) 1.2 % (0-2); EOSINOPHILS % (AUTO) 6.5 % (0-6); HEMATOCRIT 37.5 % (36.0-47.0); HEMOGLOBIN 12.5 g/dL (12.0-15.5); LYMPHOCYTES % (AUTO) 47.4 % (13-45); MEAN CORPUSCULAR HEMOGLOBIN 29.3 pg (27.0-33.4); MEAN CORPUSCULAR HGB CONC 33.3 g/dL (32.0-36.0); MEAN CORPUSCULAR VOLUME 88 fl (80-97); MONOCYTES % (AUTO) 6.9 % (3-13); PLATELET COUNT 370 10^3/uL (150-450); RED BLOOD COUNT 4.25 10^6/uL (3.72-5.28); RED CELL DISTRIBUTION WIDTH 14.1 % (11.5-14.0); TOTAL CELLS COUNTED % (AUTO) 100 %; WHITE BLOOD COUNT 4.5 10^3/uL (4.0-10.5)
--- NOTE | 2020-06-21 14:30 | RADIOLOGY REPORT (SQ) ---
EXAM DESCRIPTION: CHEST 2 VIEWS IMAGES COMPLETED DATE/TIME: 06/21/2020 2:17 pm REASON FOR STUDY: right chest pain COMPARISON: None. EXAM PARAMETERS: NUMBER OF VIEWS: two views TECHNIQUE: Digital Frontal and Lateral radiographic views of the chest acquired. RADIATION DOSE: NA LIMITATIONS: none FINDINGS: LUNGS AND PLEURA: No opacities, masses or pneumothorax. No pleural effusion. MEDIASTINUM AND HILAR STRUCTURES: No masses or contour abnormalities. HEART AND VASCULAR STRUCTURES: Heart normal size. No evidence for failure. BONES: No acute findings. HARDWARE: None in the chest. OTHER: No other significant finding. IMPRESSION: NO ACUTE RADIOGRAPHIC FINDING IN THE CHEST. TECHNICAL DOCUMENTATION: JOB ID: [id number] [employer]- All Rights Reserved Reading location - IP/workstation name: [email or web address]
[2020-06-21 14:51] LABS: ANION GAP 7 (5-19)
[2020-06-21 14:54] LABS: ALBUMIN 4.3 g/dL (3.5-5.0); ALKALINE PHOSPHATASE 85 U/L (38-126); ASPARTATE AMINO TRANSFERASE 25 U/L (14-36); BILIRUBIN,DIRECT 0.1 mg/dL (0.0-0.4); BILIRUBIN,TOTAL 0.5 mg/dL (0.2-1.3); BLOOD UREA NITROGEN 12 mg/dL (7-20); CALCIUM 9.8 mg/dL (8.4-10.2); CARBON DIOXIDE 24 mmol/L (22-30); CHLORIDE 107 mmol/L (98-107); GLUCOSE 80 mg/dL (75-110); POTASSIUM 4.7 mmol/L (3.6-5.0); TOTAL PROTEIN 7.8 g/dL (6.3-8.2)
--- NOTE | 2020-06-21 18:20 | ER Document Report ---
ED General - General Chief Complaint: Chest Wall Pain Stated Complaint: CHEST PAIN Time Seen by Provider: 06/21/20 13:35 Notes: 29-year-old woman presents to the emergency department with a complaint of right-sided chest pain which worsens with movement. She denies shortness of breath or palpitations. Symptoms have been ongoing for the past 3 days. She thinks it may be related to sleeping on a couch. She denies any other associated symptoms. She was seen in triage and given Toradol, she states that the symptoms have resolved. Lab tests chest x-ray, EKG were also performed. TRAVEL OUTSIDE OF THE [place] IN LAST 30 DAYS: No - Related Data Allergies/Adverse Reactions: No Known Allergies Allergy (Verified 06/21/20 13:26) Past Medical History - Social History Smoking Status: Current Every Day Smoker Chew tobacco use (# tins/day): No Frequency of alcohol use: None Drug Abuse: Marijuana Family History: Reviewed & Not Pertinent Patient has homicidal ideation: No Renal/ Medical History: Reports: Hx Ovarian Cysts. Denies: Hx Peritoneal Dialysis Past Surgical History: Reports: Hx Gynecologic Surgery - - Immunizations Immunizations up to date: Yes Hx Diphtheria, Pertussis, Tetanus Vaccination: Yes Review of Systems - Review of Systems Notes: Constitutional: Negative for fever. HENT: Negative for sore throat. Eyes: Negative for visual changes. Cardiovascular: + Right-sided chest pain Respiratory: Negative for shortness of breath. Gastrointestinal: Negative for abdominal pain, vomiting or diarrhea. Genitourinary: Negative for dysuria. Musculoskeletal: Negative for back pain. Skin: Negative for rash. Neurological: Negative for headaches, weakness or numbness. 10 point ROS negative except as marked above and in HPI. Physical Exam - Vital signs Vitals: Temp Pulse Resp BP Pulse Ox 98.5 F 72 16 125/75 100 06/21/20 13:06 06/21/20 13:06 06/21/20 13:06/21/20 13:06/21/20 13:06 - Notes Notes: PHYSICAL EXAMINATION: Physical Exam: General: Well-nourished well-developed 29-year-old female in no acute distress HEENT: NC/AT, pupils equal round and reactive to light, MM moist,nares clear, oropharynx clear, airway patent Neck: supple, no adenopathy, no masses. Good range of motion Lungs: clear, no wheezing, no rales no rhonchi Chest wall: Nontender during this exam. CVS: Regular rate and rhythm no murmur gallop or rub Abdomen: Soft, active, nontender, no masses, no hepatosplenomegaly Ext: No edema, clubbing or cyanosis. Neuro: Alert and responsive, moving all 4 extremities on command, cranial nerves intact, no focal findings Skin: Intact no open lesions, no rash PSYCH: Normal mood, normal affect. Course - Re-evaluation Re-evalutation: 06/21/20 18:17 29-year-old with musculoskeletal chest wall pain, noncardiac in etiology. Negative labs, negative chest x-ray, no acute findings on EKG. I have given her a prescription for Naprosyn, instructions to use a cold compress to the area of pain she is to follow-up with your primary care doctor as needed. - Vital Signs Vital signs: Temp Pulse Resp BP Pulse Ox 98.5 F 72 16 125/75 100 06/21/20 13:06 06/21/20 13:06 06/21/20 13:06 06/21/20 13:06 06/21/20 13:06 - Laboratory Result Diagrams: 06/21/20 14:05 06/21/20 14:05 Laboratory results interpreted by me: 06/21/20 14:05 RDW 14.1 H Lymph % (Auto) 47.4 H Eos % (Auto) 6.5 H Seg Neutrophils % 38.0 L 06/21/20 18:22 I have reviewed laboratory data and used this information for the treatment d ecisions regarding the patient. - Diagnostic Test Radiology reviewed: Image reviewed, Reports reviewed Radiology results interpreted by me: 06/21/20 18:22 Chest x-ray: No acute cardiopulmonary findings - EKG Interpretation by [facility] EKG shows normal: Sinus rhythm, Issue - Normal, Intervals - Normal, QRS Complexes - Normal, ST-T Waves - Normal ST and T wave findings, no ischemic changes noted. Rate: Normal - 67 Discharge - Discharge Clinical Impression: Non-cardiac chest pain, Musculoskeletal chest pain Condition: Good Disposition: HOME, SELF-CARE Instructions: Anti-Inflammatory Medication ([facility]), Chest Wall Pain ([facility]) Additional Instructions: Your seen in the emergency department today with a right-sided chest wall pain. Its appears to be musculoskeletal in etiology and has no relationship to your lungs or your heart. Please use the medications as prescribed Naprosyn, use a cold compress to the area if it is recurrent and follow-up with your primary care doctor as needed. HOME CARE INSTRUCTIONS & INFORMATION: Thank you for choosing us for your medical needs. We hope you're satisfied with the care you received. After you leave, you must properly care for your problem and, at the same time, observe its progress. Any condition can change. Some illnesses can change rapidly over hours or days. If your condition worsens, return to the Emergency Department or see your physician promptly. ABOUT YOUR X-RAYS AND EKG'S: If you had an EKG or X-rays taken, they have been read by the Emergency Physician. The X-rays and EKG's will also be read by a Radiologist or Staff Air Tactical Officer within 24 hours. If discrepancies are noted, you will be notified by telephone. Please be certain the ED has a correct telephone number & address where you can be reached. Also, realize that some fractures or abnormalities do not show up on initial X-rays. If your symptoms continue, see your physician. ABOUT YOUR LABORATORY TEST: If you had laboratory tests, the results have been reviewed by the Emergency Physician. Some test results (for example cultures) may not be available for several days. You will be contacted if any test result shows you need additional treatment. Please be certain the ED has a correct telephone number and address where you can be reached. ABOUT YOUR MEDICATIONS: You will receive instructions on how to take your medicine on the prescription label you receive. Additional information may be provided by the Pharmacy. If you have questions afterwards, call the ED for clarification or further instructions. Some prescribed medications may cause drowsiness. Do not perform tasks such as driving a car or operating machinery without consulting your Pharmacist. If you feel you need a refill of pain medication, your condition will need re-evaluation. Please do not call for a refill of any medication. ABOUT YOUR SIGNATURE: Signature of this document acknowledges to followin. Understanding that you received emergency treatment and that you may be released before al medical problems are known or treated. Please be certain the ED has a correct phone number & address where you can be reached. 2. Acknowledgement that you will arrange for follow-up care as recommended. 3. Authorization for the Emergency Physician to provide information to your follow-up Physician in order to maximize your care. AT ANY TIME, IF YOUR SYMPTOMS CHANGE SIGNIFICANTLY OR WORSEN OR YOU DEVELOP NEW SYMPTOMS, RETURN TO THE EMERGENCY DEPARTMENT IMMEDIATELY FOR RE-EVALUATION. OUR GOAL IS TO PROVIDE EXCELLENT MEDICAL CARE! WE HOPE THAT WE HAVE MET YOUR EXPECTATIONS DURING YOUR EMERGENCY DEPARTMENT VISIT AND THAT YOU FEEL YOU HAVE RECEIVED EXCELLENT CARE! Prescriptions: Naproxen [Naprosyn] 500 mg PO BID PRN #20 tablet PRN Reason: For Pain Forms: Return to Work
[2020-06-21 18:27] VITALS: BP 128/69
--- NOTE | 2020-06-22 01:12 | EKG REPORT ---
SEVERITY:- NORMAL ECG - SINUS RHYTHM : Confirmed by: Hilaria Ness MD 22-Jun-2020 01:11:28
== END 2020-06-21 18:25 | disposition home or self-care (01) ==
LOC: ER 12:46
DX: R07.89 Other chest pain (principal); F17.200 Nicotine dependence, unspecified, uncomplicated; F12.10 Cannabis abuse, uncomplicated
CPT/HCPCS: 93005; 99285; 96372; 36415; 84703; 85025; 80053; 84484; 71046; 93010; J1885